=== PATIENT | male | born 1980 | race Caucasian/White ===

== ENCOUNTER 2017-07-26 23:11 | Emergency (ER) | payer MEDICARE, MEDICAID ==
[2017-07-26] MEDS: NS 1,000 ML IV (23:30)
[2017-07-27] MEDS: GI COCKTAIL 50ML BTL(HYOSCYAMINE/MAALOX/LIDOCAINE VISCOUS)(1:3:1) PO (00:38)
[2017-07-27] MEDS: SUCRALFATE 1 GM TAB PO (00:38)
[2017-07-27 00:39] LABS: BASO % 0.2 % (0.0-1.0); EOS # 0.5 10^3/uL (0.0-0.50); EOS % 3.4 % (0.0-3.0); HEMATOCRIT 39.7 % (42.0-52.0); HEMOGLOBIN 13.7 g/dl (13.5-17.5); IMMATURE GRANULOCYTE % 0.4 % (0-3.0); LYMPH % 19.3 % (24.0-44.0); MEAN CORPUSCULAR HEMOGLOBIN 29.7 pg (27.0-33.0); MEAN CORPUSCULAR HGB CONC 34.5 g/dl (32.0-36.5); MEAN CORPUSCULAR VOLUME 86.1 fl (80.0-96.0); MONO # 1.4 10^3/uL (0.0-0.8); MONO % 9.4 % (0.0-5.0); NEUTROPHILS # 10.4 10^3/uL (1.8-7.7); NEUTROPHILS % 67.3 % (36.0-66.0); PLATELET COUNT, AUTOMATED 217 10^3/uL (150-450); RED BLOOD COUNT 4.61 10^6/uL (4.30-6.10); RED CELL DISTRIBUTION WIDTH 13.1 % (11.5-14.5); WHITE BLOOD COUNT 15.4 10^3/uL (4.0-10.0)
[2017-07-27] MEDS: PANTOPRAZOLE 40MG INJ (PROTONIX) (C9113) IV (00:39)
[2017-07-27 01:02] LABS: ALBUMIN 3.4 GM/DL (3.2-5.2); ALBUMIN/GLOBULIN RATIO 1.06 (1.00-1.93); ALKALINE PHOSPHATASE 107 U/L (45-117); ALT/SGPT 41 U/L (12-78); AMYLASE 35 U/L (25-115); ANION GAP 5 MEQ/L (8-16); AST/SGOT 20 U/L (7-37); BILIRUBIN,DIRECT 0.1 MG/DL (0.0-0.2); BILIRUBIN,TOTAL 0.4 MG/DL (0.2-1.0); BLOOD UREA NITROGEN 12 MG/DL (7-18); CALCIUM LEVEL 8.1 MG/DL (8.5-10.1); CARBON DIOXIDE LEVEL 28 MEQ/L (21-32); CHLORIDE LEVEL 110 MEQ/L (98-107); CREATININE FOR GFR 0.92 MG/DL (0.70-1.30); GLOMERULAR FILTRATION RATE > 60.0 (>60); GLUCOSE, FASTING 106 MG/DL (70-100); LIPASE 87 U/L (73-393); POTASSIUM SERUM 4.1 MEQ/L (3.5-5.1); SODIUM LEVEL 143 MEQ/L (136-145); TOTAL PROTEIN 6.6 GM/DL (6.4-8.2)
[2017-07-27] MEDS: OXYCODONE/APAP 5MG/325MG(BULK FOR ED) 1 TABLET PO (02:22)
== END 2017-07-27 02:26 | disposition home or self-care (01) ==
LOC: M ED 07-27 02:26
DX: K21.9 Gastro-esophageal reflux disease without esophagitis (principal); R07.9 Chest pain, unspecified; I10 Essential (primary) hypertension; F32.9 Major depressive disorder, single episode, unspecified; M10.9 Gout, unspecified; F17.200 Nicotine dependence, unspecified, uncomplicated; Z88.8 Allergy status to other drugs, medicaments and biological substances; Z91.018 Allergy to other foods; Z91.030 Bee allergy status; Z79.899 Other long term (current) drug therapy; Z79.82 Long term (current) use of aspirin
CPT/HCPCS: 82150

== ENCOUNTER → 2018-11-04 | Outpatient (REF) ==
[~2018-11-04] MED LIST: ALBUTEROL INH; AMLO10TA5; ASPI81TA83 OR; COLC1TAB13; EPIN0.3I11; FLOM0.4C39; LAMI1TAB7 OR; MELO15TA28; METO1TAB32; OMEP20CA4; PRIL40CA OR; TOPI50TA OR; VENL150C43; VENL75TA2 OR; ZITHTAB OR
--- NOTE | 2018-11-04 17:50 | REP ---
Lumbar spine series: Three views. History: Degenerative disc disease. Findings: Lumbar vertebral body heights are preserved. Alignment is normal. There is no evidence of spondylolysis or spondylolisthesis. There is minimal degenerative narrowing of the L3-4 and L4-5 disc spaces. No spurring is seen. Pedicles and posterior elements are intact. Sacrum and SI joints are unremarkable. Psoas margins are symmetric. Impression: Minimal narrowing of the L4-5 and L3-4 intervertebral discs. Otherwise normal. Electronically Signed by Milad Agarwal MD 11/04/2018 07:28 P
== END ==
LOC: M SMT 09:22
PROVIDERS: ATTEND Internal Medicine
DX: Z02.71 Encounter for disability determination (principal)

== ENCOUNTER 2019-11-17 22:01 | Emergency (ER) | payer MEDICAID, MEDICARE, SELFPAY ==
[~2019-11-17] VITALS: Ht 185.4 cm; Wt 131.8 kg
[~2019-11-17 22:01] MED LIST changes: -AMLO10TA5; +AMLO1TAB25; +OMEP1CAP73; -OMEP20CA4
[2019-11-17] MEDS ORDERED: LOSA100T50 PO (22:09)
[2019-11-17] MEDS ORDERED: ALLO10TA PO (22:09)
[2019-11-18] MEDS ORDERED: KETOROLAC TROMETHAMINE 10 MG TAB PO ONE (00:30)
[2019-11-18 00:36] VITALS: BP 205/112
--- NOTE | 2019-11-18 08:18 | REP ---
Clinical: Trauma. Sprain. Technique: AP, lateral, bilateral oblique views of the left ankle. Findings: Marked soft tissue swelling. No acute fracture dislocation. Ankle mortise intact. Impression: Soft-tissue swelling. No acute fracture. Electronically Signed by Hernán Duncan MD 11/18/2019 08:10 A
== END 2019-11-18 00:54 | disposition home or self-care (01) ==
LOC: M ED 22:01
DX: S93.402A Sprain of unspecified ligament of left ankle, initial encounter (principal); X50.9XXA Other and unspecified overexertion or strenuous movements or postures, initial encounter; Y92.410 Unspecified street and highway as the place of occurrence of the external cause; I10 Essential (primary) hypertension; F33.9 Major depressive disorder, recurrent, unspecified; G47.33 Obstructive sleep apnea (adult) (pediatric); K21.9 Gastro-esophageal reflux disease without esophagitis; Z99.89 Dependence on other enabling machines and devices; Z79.899 Other long term (current) drug therapy; Z91.018 Allergy to other foods; Z91.030 Bee allergy status; Z88.1 Allergy status to other antibiotic agents; Z88.8 Allergy status to other drugs, medicaments and biological substances; F17.210 Nicotine dependence, cigarettes, uncomplicated

== ENCOUNTER 2020-05-19 00:10 | Emergency (ER) | payer SELFPAY ==
[~2020-05-19] VITALS: Ht 182.9 cm; Wt 126.6 kg
[~2020-05-19 00:10] MED LIST changes: +ALLO10TA PO; +COLC0.6T47; -COLC1TAB13; +LOSA100T50 PO
--- OUTSIDE RECORDS SUMMARY | 2020-05-19 00:22 | CCD | Continuity of Care Document ---
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 Name Role Phone PCP Unavailable Allergies, Adverse Reactions, Alerts Allergen Type Severity Reaction Last Updated Verified Status BEE STINGS Allergy Unknown angioedema~hives December 01, 2014 No Active HDOXIZ Allergy Unknown May 18, 2015 No A ctive HDROXIZ Allergy Unknown December 01, 2014 No Act bernardino HDROXYZINE Allergy Unknown hives December 01, 2014 No Ac tive HYDOXIZNE Allergy Unknown May 18, 2015 No A ctive HYDROXIZINE Allergy Unknown HIVES June 21, 2012 No Active ONIONS Allergy Unknown HIVES June 21, 2012 No Active wnagodmhvs Allergy Unknown December 01, 2014 No Ac tive Medications Medication Status Dose Units Route Sig Qty Days Start Date End Date Instructions Omeprazole Active Daily VENLAFAXINE HCL Active Twice Daily ERGOCALCIFEROL (VITAMIN D2) Discontinued Every 7 Day s @ 1800 February 09, 2013 11:39am Gabapentin Discontinued 300 Daily October 12:20am Omeprazole Discontinued 40 Daily October 12:20am VENLAFAXINE HCL Discontinued 150 Daily Oct 12:20am Zolpidem Tartrate Discontinued 10 HS, PRN November 23, 2012 12:20am Problems No problem information available. Procedures Procedure Date Performed Status THORACIC W/O IV CONTRAST April 06, 2020 active L SPINE W/O IV CONTRAST April 06, 2020 active CERV SPINE W/O CONTRAST April 06, 2020 active BRAIN W/O CONTRAST April 06, 2020 active Relevant Diagnostic Tests and/or Laboratory Data Laboratory Results Test Date/Time Result Interpretation Reference Range Result Co mment Performing Site Urine Color April 05, 2020 8:05pm YELLOW [facility] Main Lab, [address] [facility] [address] Urine Appearance April 05, 2020 8:05pm CLEAR [facility] Lab, [address] [facility] [address] Urine Glucose April 05, 2020 8:05pm NEGATIVE [facility] Lab, [address] [facility] [address] Urine Bilirubin April 05, 2020 8:05pm NEGATIVE [facility] Lab, [address] [facility] [address] Urine Ketones April 05, 2020 8:05pm NEGATIVE [facility] Lab, [address] [facility] [address] Specific [facility] April 05, 2020 8:05pm 1.020 1.001-1 .035 [facility] Lab, [address] [facility] [address] Urine Blood April 05, 2020 8:05pm TRACE [facility] Lab, [address] [facility] [address] Urine pH April 05, 2020 8:05pm 7.0 5.0-9.0 [facility] Lab, [address] [facility] [address] Urine Protein April 05, 2020 8:05pm NEGATIVE [facility] Lab, [address] [facility] [address] Urine Urobilinogen April 05, 2020 8:05pm NORMAL(0.2-1) 0 -1 [facility], [address] [facility] [address] Urine Nitrite April 05, 2020 8:05pm NEGATIVE [facility] Lab, [address] [facility] [address] Urine Leukocyte Esterase April 05, 2020 8:05pm NEGATIVE NEGATIVE [facility] Lab, [address] [facility] [address] Urine Microscopic RBC April 05, 2020 8:05pm 0-2 0- 3 [facility] Lab, [address] [facility] [address] Urine Microscopic WBC April 05, 2020 8:05pm NONE SEEN 0- 5 [facility] Lab, [address] [facility] [address] Health Concerns No known health concerns documented Chief Complaint and Reason for Visit Reason for Visit LOWER BACK PAIN FROM FALL Encounters Encounter Location(s) Arrival/Admit Date Discharge/Depart Date Provider(s) Departed Emergency [facility], [facility] April 05, 2020 7:43pm April 05, 2020 10:42pm JEWELL REY Assessments No Assessments Information Available Functional Status No Functional Status information available Goals No Goals Information Available Immunizations Immunization Event Date Not Given Reason Dose Number [employer] Lot Number Vaccine Information Statement (VIS) Detail Mental Status No Mental Status Information Available Medical Equipment No Medical Equipment Information available Insurance Providers Guarantor BETTE CARSON Address [address] [place] [address] Contact Info. Home Phone: Payer Policy Id Coverage Id Subscriber's Name Subscriber Id Effect [id number] Date Expiration Date SELF PAY [id number] BETTE CARSON Social History Assigned Sex Male Vital Signs No vital signs result information available.
--- OUTSIDE RECORDS SUMMARY | 2020-05-19 00:23 | CCD ---
Author Author [facility] Organization [facility] Address Unknown Phone Unavailable Care Team Providers Care Dental Practice Manager Name Role Phone PETROFF, BARRETT PA Unavailable Unavailable PETROFF, BARRETT PA Unavailable Unavailable PETROFF, BARRETT PA Unavailable Unavailable PETROFF, BARRETT PA Unavailable Unavailable PETROFF, BARRETT PA Unavailable Unavailable PETROFF, BARRETT PA Unavailable Unavailable PETROFF, BARRETT PA Unavailable Unavailable PETROFF, BARRETT PA Unavailable Unavailable SYMENOW, G CHRISTOPHER PA Unavailable Unavailable SYMENOW, G CHRISTOPHER PA Unavailable Unavailable SYMENOW, G CHRISTOPHER PA Unavailable Unavailable SYMENOW, G CHRISTOPHER PA Unavailable Unavailable SYMENOW, G CHRISTOPHER PA Unavailable Unavailable SYMENOW, G CHRISTOPHER PA Unavailable Unavailable SYMENOW, G CHRISTOPHER PA Unavailable Unavailable SYMENOW, G CHRISTOPHER PA Unavailable Unavailable SYMENOW, G CHRISTOPHER PA Unavailable Unavailable SYMENOW, G CHRISTOPHER PA Unavailable Unavailable SYMENOW, G CHRISTOPHER PA Unavailable Unavailable SYMENOW, G CHRISTOPHER PA Unavailable Unavailable SYMENOW, G CHRISTOPHER PA Unavailable Unavailable SYMENOW, G CHRISTOPHER PA Unavailable Unavailable SYMENOW, G CHRISTOPHER PA Unavailable Unavailable SYMENOW, G CHRISTOPHER PA Unavailable Unavailable SYMENOW, G CHRISTOPHER PA Unavailable Unavailable Bridges, W Mahsa RPA-C Unavailable Unavailable Bridges, W Mahsa RPA-C Unavailable Unavailable Bridges, W Mahsa RPA-C Unavailable Unavailable Bridges, W Mahsa RPA-C Unavailable Unavailable Bridges, W Mahsa RPA-C Unavailable Unavailable Bridges, W Mahsa RPA-C Unavailable Unavailable Bridges, W Mahsa RPA-C Unavailable Unavailable Bridges, W Mahsa RPA-C Unavailable Unavailable Bridges, W Mahsa RPA-C Unavailable Unavailable Bridges, W Mahsa RPA-C Unavailable Unavailable Bridges, W Mahsa RPA-C Unavailable Unavailable Bridges, W Mahsa RPA-C Unavailable Unavailable Bridges, W Mahsa RPA-C Unavailable Unavailable Bridges, W Mahsa RPA-C Unavailable Unavailable Bridges, W Mahsa RPA-C Unavailable Unavailable Bridges, W Mahsa RPA-C Unavailable Unavailable KRISSY, JEWELL PA Unavailable Unavailable KRISSY, JEWELL PA Unavailable Unavailable KRISSY, JEWELL PA Unavailable Unavailable KRISSY, JWEELL PA Unavailable Unavailable KRISSY, JEWELL PA Unavailable Unavailable KRISSY, JEWELL PA Unavailable Unavailable KRISSY, JEWELL PA Unavailable Unavailable KRISSY, JEWELL PA Unavailable Unavailable KRISSY, JEWELL PA Unavailable Unavailable KRISSY, JEWELL PA Unavailable Unavailable KRISSY, JEWELL PA Unavailable Unavailable KRISSY, JEWELL PA Unavailable Unavailable KRISSY, JEWELL PA Unavailable Unavailable KRISSY, JEWELL PA Unavailable Unavailable KRISSY, JEWELL PA Unavailable Unavailable Lv CRUMP MD Unavailable Unavailable Lv CRUMP MD Unavailable Unavailable Lv CRUMP MD Unavailable Unavailable Cougler, S Kade DIESEL POWER MECHANIC Unavailable Unavailable Cougler, S Kade DIESEL POWER MECHANIC Unavailable Unavailable Cougler, S Kade DIESEL POWER MECHANIC Unavailable Unavailable Cougler, S Kade DIESEL POWER MECHANIC Unavailable Unavailable Cougler, S Kade DIESEL POWER MECHANIC Unavailable Unavailable Cougler, S Kade DIESEL POWER MECHANIC Unavailable Unavailable Cougler, S Kade DIESEL POWER MECHANIC Unavailable Unavailable Cougler, S Kade DIESEL POWER MECHANIC Unavailable Unavailable Cougler, S Kade DIESEL POWER MECHANIC Unavailable Unavailable Cougler, S Kade DIESEL POWER MECHANIC Unavailable Unavailable Cougler, S Kade DIESEL POWER MECHANIC Unavailable Unavailable Cougler, S Kade DIESEL POWER MECHANIC Unavailable Unavailable Cougler, S Kade DIESEL POWER MECHANIC Unavailable Unavailable Cougler, S Kade DIESEL POWER MECHANIC Unavailable Unavailable Cougler, S Kade DIESEL POWER MECHANIC Unavailable Unavailable Cougler, S Kade DIESEL POWER MECHANIC Unavailable Unavailable Cougler, S Kade DIESEL POWER MECHANIC Unavailable Unavailable Cougler, S Kade DIESEL POWER MECHANIC Unavailable Unavailable Cougler, S Kade DIESEL POWER MECHANIC Unavailable Unavailable Cougler, S Kade DIESEL POWER MECHANIC Unavailable Unavailable Cougler, S Kade DIESEL POWER MECHANIC Unavailable Unavailable Cougler, S Kade DIESEL POWER MECHANIC Unavailable Unavailable Cougler, S Kade DIESEL POWER MECHANIC Unavailable Unavailable Cougler, S Kade DIESEL POWER MECHANIC Unavailable Unavailable Cougler, S Kade DIESEL POWER MECHANIC Unavailable Unavailable Cougler, S Kade DIESEL POWER MECHANIC Unavailable Unavailable Cougler, S Kade DIESEL POWER MECHANIC Unavailable Unavailable Cougler, S Kade DIESEL POWER MECHANIC Unavailable Unavailable Cougler, S Kade DIESEL POWER MECHANIC Unavailable Unavailable Cougler, S Kade DIESEL POWER MECHANIC Unavailable Unavailable Cougler, S Kade DIESEL POWER MECHANIC Unavailable Unavailable Cougler, S Kade DIESEL POWER MECHANIC Unavailable Unavailable Cougler, S Kade DIESEL POWER MECHANIC Unavailable Unavailable Cougler, S Kade DIESEL POWER MECHANIC Unavailable Unavailable Cougler, S Kade DIESEL POWER MECHANIC Unavailable Unavailable Cougler, S Kade DIESEL POWER MECHANIC Unavailable Unavailable Cougler, S Kade DIESEL POWER MECHANIC Unavailable Unavailable Cougler, S Kade DIESEL POWER MECHANIC Unavailable Unavailable Cougler, S Kade DIESEL POWER MECHANIC Unavailable Unavailable Huntley, R Luis Fernando PA Unavailable Unavailable Huntley, R Luis Fernando PA Unavailable Huntley, R Luis Fernando PA Unavailable Huntley, R Luis Fernando PA Unavailable Huntley, R Luis Fernando PA Unavailable Huntley, R Luis Fernando PA Unavailable Huntley, R Luis Fernando PA Unavailable Huntley, R Luis Fernando PA Unavailable MARAVEGIAS, Alfredito MEZA MD Unavailable Unavailable MARAVEGIAS, Alfredito MEZA MD Unavailable Unavailable MARAVEGIAS, Alfredito MEZA MD Unavailable Unavailable MARAVEGIAS, Alfredito MEZA MD Unavailable Unavailable MARAVEGIADanilo, Alfredito MEZA MD Unavailable Unavailable MARAVEGIAS, Alfredito MEZA MD Unavailable Unavailable MARAVEGIAS, Alfredito MEZA MD Unavailable Unavailable MARAVEGIADanilo, Alfredito MEZA MD Unavailable Unavailable MARAVEGIADanilo, Alfredito MEZA MD Unavailable Unavailable MARAVEGIADanilo, Alfredito MEZA MD Unavailable Unavailable MARAVEGIAS, Alfredito MEZA MD Unavailable Unavailable MARAVEGIAS, Alfredito MEZA MD Unavailable Unavailable MARAVEGIADanilo, N SAIDA JOLLY Unavailable Unavailable MARAVEGIAS, N SAIDA JOLLY Unavailable Unavailable BROWN, GUY NICHOLAS DIESEL POWER MECHANIC Unavailable Unavailable BROWN, GUY NICHOLAS DIESEL POWER MECHANIC Unavailable Unavailable BROWN, GUY NICHOLAS DIESEL POWER MECHANIC Unavailable Unavailable BROWN, GUY NICHOLAS DIESEL POWER MECHANIC Unavailable Unavailable BROWN, GUY NICHOLAS DIESEL POWER MECHANIC Unavailable Unavailable BROWN, GUY NICHOLAS DIESEL POWER MECHANIC Unavailable Unavailable BROWN, GUY NICHOLAS DIESEL POWER MECHANIC Unavailable Unavailable BROWN, GUY NICHOLAS DIESEL POWER MECHANIC Unavailable Unavailable BROWN, GUY NICHOLAS DIESEL POWER MECHANIC Unavailable Unavailable BROWN, GUY NICHOLAS DIESEL POWER MECHANIC Unavailable Unavailable BROWN, GUY NICHOLAS DIESEL POWER MECHANIC Unavailable Unavailable BROWN, GUY NICHOLAS DIESEL POWER MECHANIC Unavailable Unavailable BROWN, GUY NICHOLAS DIESEL POWER MECHANIC Unavailable Unavailable BROWN, GUY NICHOLAS DIESEL POWER MECHANIC Unavailable Unavailable BROWN, GUY NICHOLAS DIESEL POWER MECHANIC Unavailable Unavailable BROWN, GUY NICHOLAS DIESEL POWER MECHANIC Unavailable Unavailable BROWN, GUY NICHOLAS DIESEL POWER MECHANIC Unavailable Unavailable BROWN, GUY NICHOLAS DIESEL POWER MECHANIC Unavailable Unavailable BROWN, GUY NICHOLAS DIESEL POWER MECHANIC Unavailable Unavailable BROWN, GUY NICHOLAS DIESEL POWER MECHANIC Unavailable Unavailable BROWN, GUY NICHOLAS DIESEL POWER MECHANIC Unavailable Unavailable BROWN, GUY NICHOLAS DIESEL POWER MECHANIC Unavailable Unavailable BROWN, GUY NICHOLAS DIESEL POWER MECHANIC Unavailable Unavailable BROWN, GUY NICHOLAS DIESEL POWER MECHANIC Unavailable Unavailable BROWN, GUY NICHOLAS DIESEL POWER MECHANIC Unavailable Unavailable BROWN, GUY NICHOLAS DIESEL POWER MECHANIC Unavailable Unavailable BROWN, GUY NICHOLAS DIESEL POWER MECHANIC Unavailable Unavailable BROWN, GUY NICHOLAS DIESEL POWER MECHANIC Unavailable Unavailable BROWN, GUY NICHOLAS DIESEL POWER MECHANIC Unavailable Unavailable BROWN, GUY NICHOLAS DIESEL POWER MECHANIC Unavailable Unavailable BROWN, GUY NICHOLAS DIESEL POWER MECHANIC Unavailable Unavailable BROWN, GUY NICHOLAS DIESEL POWER MECHANIC Unavailable Unavailable BROWN, GUY NICHOLAS DIESEL POWER MECHANIC Unavailable Unavailable BROWN, GUY NICHOLAS DIESEL POWER MECHANIC Unavailable Unavailable BROWN, GUY NICHOLAS DIESEL POWER MECHANIC Unavailable Unavailable BROWN, GUY NICHOLAS DIESEL POWER MECHANIC Unavailable Unavailable BROWN, GUY NICHOLAS DIESEL POWER MECHANIC Unavailable Unavailable BROWN, GUY NICHOLAS DIESEL POWER MECHANIC Unavailable Unavailable BROWN, GUY NICHOLAS DIESEL POWER MECHANIC Unavailable Unavailable PASTORA, DANIELLE PA Unavailable Unavailable PASTORA, DANIELLE PA Unavailable Unavailable PASTORA, DANIELLE PA Unavailable Unavailable PASTORA, DANIELLE PA Unavailable Unavailable PASTORA, DANIELLE PA Unavailable Unavailable PASTORA, DANIELLE PA Unavailable Unavailable PASTORA, DANIELLE PA Unavailable Unavailable SYBIL, YULY MARTHA PA Unavailable Unavailable SYBIL, YULY MARTHA PA Unavailable Unavailable SYBIL, YULY MARTHA PA Unavailable Unavailable SYBIL, YULY MARTHA PA Unavailable Unavailable SYBIL, YULY MARTHA PA Unavailable Unavailable SYBIL, YULY MARTHA PA Unavailable Unavailable SYBIL, YULY MRATHA PA Unavailable Unavailable SYBIL, YULY MARTHA PA Unavailable Unavailable SYBIL, YULY MARTHA PA Unavailable Unavailable SYBIL, YULY MARTHA PA Unavailable Unavailable SYBIL, YULY MARTHA PA Unavailable Unavailable SYBIL, YULY MARTHA PA Unavailable Unavailable SYBIL, YULY MARTHA PA Unavailable Unavailable SYBIL, YULY MARTHA PA Unavailable Unavailable SYBIL, YULY MARTHA PA Unavailable Unavailable SYBIL, YULY MARTHA PA Unavailable Unavailable SYBIL, YULY MARTHA PA Unavailable Unavailable SYBIL, YULY MARTHA PA Unavailable Unavailable SYBIL, YULY MARTHA PA Unavailable Unavailable SYBIL, YULY MARTHA PA Unavailable Unavailable SYBIL, YULY MARTHA PA Unavailable Unavailable LOBITO, A DARON PA Unavailable Unavailable LOBITO, A DARON PA Unavailable Unavailable LOBITO, A DARON PA Unavailable Unavailable LOBITO, A DARON PA Unavailable Unavailable LOBITO, A DARON PA Unavailable Unavailable LOBITO, A DARON PA Unavailable Unavailable LOBITO, A DARON PA Unavailable Unavailable LOBITO, A DARON PA Unavailable Unavailable LOBITO, A DARON PA Unavailable Unavailable LOBITO, A DARON PA Unavailable Unavailable LOBITO, A DARON PA Unavailable Unavailable LOBITO, A DARON PA Unavailable Unavailable LOBITO, A DARON PA Unavailable Unavailable Kaykay MILLER MD Unavailable Unavailable Kaykay MILLER MD Unavailable Unavailable Kaykay MILLER MD Unavailable Unavailable Kaykay MILLER MD Unavailable Unavailable Kaykay MILLER MD Unavailable Unavailable Kaykay MILLER MD Unavailable Unavailable Kaykay MILLER MD Unavailable Unavailable Kaykay MILLER MD Unavailable Unavailable Kaykay MILLER MD Unavailable Unavailable Kaykay MILLER MD Unavailable Unavailable Kaykay MILLER MD Unavailable Unavailable Kaykay MILLER MD Unavailable Unavailable Kaykay MILLER MD Unavailable Unavailable Kaykay MILLER MD Unavailable Unavailable Kaykay MILLER MD Unavailable Unavailable Kaykay MILLER MD Unavailable Unavailable Kaykay MILLER MD Unavailable Unavailable Kaykay MILLER MD Unavailable Unavailable Neelima MERRILL Unavailable [phone] Neelima MERRILL Unavailable [phone] Neelima MERRILL Unavailable [phone] Neelima MERRILL Unavailable [phone] Neelima MERRILL Unavailable [phone] Tiffanie MCFARLANE PA Unavailable Unavailable MCFARLANE, W CHIRGA PA Unavailable Unavailable MCFARLANE, W CHIRAG PA Unavailable Unavailable MCFARLANE, W CHIRAG PA Unavailable Unavailable MCFARLANE, W CHIRAG PA Unavailable Unavailable MCFARLANE, W CHIRAG PA Unavailable Unavailable MCFARLANE, W CHIRAG PA Unavailable Unavailable MCFARLANE, W CHIRAG PA Unavailable Unavailable MCFARLANE, W CHIRAG PA Unavailable Unavailable MCFARLANE, W CHIRAG PA Unavailable Unavailable MCFARLANE, W CHIRAG PA Unavailable Unavailable MCFARLANE, W CHIRAG PA Unavailable Unavailable MCFARLANE, W CHIRAG PA Unavailable Unavailable JUSTINE PATEL MD Unavailable Unavailable JUSTINE PATEL MD Unavailable Unavailable JUSTINE PATEL MD Unavailable Unavailable JUSTINE PATEL MD Unavailable Unavailable JUSTINE PATEL MD Unavailable Unavailable Re-disclosure Warning The records that you are about to access may contain information from federally-assisted alcohol or drug abuse programs. If such information is present, then the following federally mandated warning applies: This information has been disclosed to you from records protected by federal confidentiality rules (42 CFR part 2). The federal rules prohibit you from making any further disclosure of this information unless further disclosure is expressly permitted by the written consent of the person to whom it pertains or as otherwise permitted by 42 CFR part 2. A general authorization for the release of medical or other information is NOT sufficient for this purpose. The Federal rules restrict any use of the information to criminally investigate or prosecute any alcohol or drug abuse patient.The records that you are about to access may contain highly sensitive health information, the redisclosure of which is protected by Article 27-F of the [facility] Public Health law. If you continue you may have access to information: Regarding HIV / AIDS; Provided by facilities licensed or operated by the [facility] Office of Mental Health; or Provided by the [facility] Office for People With Developmental Disabilities. If such information is present, then the following [facility] mandated warning applies: This information has been disclosed to you from confidential records which are protected by state law. State law prohibits you from making any further disclosure of this information without the specific written consent of the person to whom it pertains, or as otherwise permitted by law. Any unauthorized further disclosure in violation of state law may result in a fine or half-way sentence or both. A general authorization for the release of medical or other information is NOT sufficient authorization for further disc losure. Allergies and Adverse Reactions Type Description Substance Reaction Status Data Source(s ) Drug allergy Drug allergy bee venom protein (honey bee) 'Throat Swell s' [facility] Drug allergy Drug allergy onion Anaphylactic Shock S [facility] Drug allergy Drug allergy clindamycin Diarrhea [facility] Drug allergy Drug allergy hydroxyzine Hives I [facility] Encounters Encounter Providers Location Date Indications Data Source(s ) Emergency Attender: JEWELL GONZALEZ EMERGENCY ROOM-ER 12/2019 01:11:00 AM EST - 04/06/2020 03:42:00 AM EST [facility] Patient discharged. Emergency Attender: SAIDA RUIZ MD ED-ED 0 12/15/2019 12:03:00 PM EDT - 12/15/2019 01:29:00 PM EDT RIGHT KNEE INJ [facility] RIGHT KNEE INJ Patient discharged. Emergency Attender: Luis Fernando Hansen: Luis Fernando GONZALEZ ED-ED 08/16/2019 11:43:00 PM EDT - 08/17/2019 01:36:00 AM EDT RT FOOT PAIN [facility] RT FOOT PAIN Patient discharged. Emergency Attender: Luis Fernando Hansen: Luis Fernando GONZALEZ ED-ED 06/24/2019 09:09:00 PM EST - 06/25/2019 12:13:00 AM EST HEADACHE RUNNY NOSE SORE THROAT [facility] HEADACHE RUNNY NOSE SORE THROAT Patient discharged. Emergency Attender: DANIELLE GONZALEZ ED-ED 05/15 03:20:00 PM EST - 05/15/2019 04:09:00 PM EST BODY ACHES FEVER [facility] BODY ACHES FEVER Patient discharged. Emergency Attender: Luis Fernando Amor nder: Luis Fernando Hansen: Kade Ortega NP ED-ED 04/27/2019 07:56:00 PM EST - 04/27/2019 09:41:00 PM EST BP HIGH [facility] BP HIGH Patient discharged. Emergency Attender: DARON GONZALEZ ED-ED 04/01 03:06:00 PM EST - 04/01/2019 04:58:00 PM EST PAIN IN BOTH FEET, BLURYR VISION [facility] PAIN IN BOTH FEET, BLURYR VISION Patient discharged. Emergency Attender: MAHSA Conteh: TONY CRUMP MD EMERGENCY ROOM-ER 03/16/2016 01:02:00 AM EST - 03/16/2016 02:38:00 AM [facility] Emergency Attender: BARRETT BROWN PAReferrer: NICHOLAS LYON NP 12/16/2015 10:59:00 AM EDT - 12/16/2015 11:38:00 AM EDT [facility] Emergency Attender: MARTHA DEVINE PAReferrer: NICHOLAS ARSHAD NP 06/22/2015 11:21:00 PM EST - 06/23/2015 12:05:00 AM [facility] Emergency Attender: Mahsa Bridges RPA-CReferrer: BEKAH LYON DIESEL POWER MECHANIC EMERGENCY ROOM-ER 05/18/2015 10:43:00 PM EST - 05/19/2015 12:50:00 AM [facility] Emergency Attender: JULIET SMITH PA EMERGENCY ROOM- ER 03/25/2015 10:37:00 PM EST - 03/25/2015 11:58:00 PM [facility] Emergency Attender: CHIRAG MCFARLANE PA EMERGENCY ROOM-ER 2014 01:11:00 PM EDT - 08/09/2014 03:00:00 PM [facility] Outpatient Attender: ISABELA MILLER MDAt tender: JUSTINE PATEL MDAdmitter: ISABELA MILLER MD 07/14/2013 10:45:19 PM EDT - 07/17/2013 04:22:00 PM EDT Lumbar spinal cord injury without evidence of spinal bone injury [facility] Lumbar spinal cord injury without eviden ce of spinal bone injury Medications Medication Brand Name Start Date Product Form Dose Route Admi nistrative Instructions Pharmacy Instructions Status Indications Reaction Description Data Source(s) Cyclobenzaprine hydrochloride 5 MG Oral Tablet CYCLOBENZAPRI NE HCL 04/06/2020 12:00:00 AM EST tablet 15 TAKE ONE TABLET BY MOUTH THREE TIMES A DAY NEEDED FOR PAIN TAKE ONE TABLET BY MOUTH THREE TIMES A DAY NEEDED F OR PAIN SOLD: 04/06/2020 [facility] 5 mg 04/06/2020 12:00:00 AM EST tablet 10 TAKE ONE TABLET BY MOUTH TWICE A DAY NEEDED MAXIMUM DAILY DOSE = 2 TAKE ONE TABLET BY MOUTH TWICE A DAY NEEDED MAXIMUM DAILY DOSE = 2 SOLD: 04/06/2020 [facility] 600 mg 04/06/2020 12:00:00 AM EST tablet 20 TAKE ONE TABLET BY MOUTH THREE TIMES A DAY NEEDED FOR PAIN TAKE ONE TABLET BY MOUTH THREE TIMES A D AY NEEDED FOR PAIN SOLD: 04/06/2020 [facility] 20 mg 12/24/2019 12:00:00 AM EDT tablet 5 TAKE ONE TABLET BY MOUTH EVERY DAY FOR 5 DAYS TAKE ONE TABLET BY MOUTH EVERY DAY FOR 5 DAYS SOLD: 12/24/2019 [facility] 20 mg 12/15/2019 12:00:00 AM EDT tablet 14 TAKE ONE TABLET BY MOUTH TWICE A DAY TAKE ONE TABLET BY MOUTH TWICE A DAY SOLD: 12/15/2019 [facility] 4 mg 08/17/2019 12:00:00 AM EDT tablets,dose pack 21 TAKE BY MOUTH DIRECTED TAKE BY MOUTH DIRECTED SOLD: 08/17/2019 [facility] 20 mg 06/25/2019 12:00:00 AM EST tablet 8 TAKE TWO TABLETS BY MOUTH ONCE DAILY FOR 4 DAYS TAKE TWO TABLETS BY MOUTH ONCE DAILY FOR 4 DAYS SOLD: 06/25/2019 [facility] 250 mg 06/25/2019 12:00:00 AM EST tablet 4 TAKE ONE TABLET BY MOUTH EVERY DAY FOR 4 DAYS TAKE ONE TABLET BY MOUTH EVERY DAY FOR 4 DAYS SOLD: 06/25/2019 [facility] 75 mg 05/15/2019 12:00:00 AM EST capsule 10 TAKE ONE CAPSULE BY MOUTH TWICE A DAY TAKE ONE CAPSULE BY MOUTH TWICE A DAY SOLD: 05/15/2019 [facility] 4 mg 05/15/2019 12:00:00 AM EST tablet,disintegrating 1 0 DISSOLVE 2 TABLET ON TONGUE EVERY 8 HOURS NEEDED FOR NAUSEA DISSOLVE 2 TABLET ON TONGUE EVERY 8 HOURS NEEDED FOR NAUSEA SOLD: 05/15/2019 [facility] 100 mg 05/06/2019 12:00:00 AM EST tablet 90 TAKE ONE TABLET BY MOUTH EVERY DAY TAKE ONE TABLET BY MOUTH EVERY DAY SOLD: 05/08/2019 [facility] 20 mg 04/04/2019 12:00:00 AM EST capsule 30 TAKE ONE CAPSULE BY MOUTH EVERY DAY NEEDED FOR PAIN AND SWELLING TAKE ONE CAPSULE BY MOUTH EVERY DAY NEEDED FOR PAIN AND SWELLING SOLD: 04/05/2019 [facility] 20 mg 04/01/2019 12:00:00 AM EST tablet 15 TAKE THREE TABLETS BY MOUTH ONCE DAILY FOR 5 DAYS TAKE THREE TABLETS BY MOUTH ONCE DAILY FOR 5 DAYS SOLD : 04/01/2019 [facility] 500 mg 04/01/2019 12:00:00 AM EST tablet 20 TAKE ONE TABLET BY MOUTH TWICE A DAY TAKE ONE TABLET BY MOUTH TWICE A DAY SOLD: 04/01/2019 [facility] 40 mg 12/03/2018 12:00:00 AM EDT capsule,delayed release (DR/EC) 30 TAKE ONE CAPSULE BY MOUTH EVERY DAY TAKE ONE CAPSULE BY MOUTH EVERY DAY SOLD: 04/01/2019 [facility] Losartan Potassium 50 MG Oral Tablet LOSARTAN POTASSIUM 12:00:00 AM EST tablet 30 TAKE ONE TABLET BY MOUTH JACOB RY DAY TAKE ONE TABLET BY MOUTH EVERY DAY SOLD: 04/01/2019 [facility] 0.6 mg 06/11/2018 12:00:00 AM EST tablet 60 TAKE ONE TABLET BY MOUTH TWICE A DAY NEEDED TAKE ONE TABLET BY MOUTH TWICE A DAY NEEDED SOLD: 04/01/2019 [facility] Insurance Providers Payer name Policy type / Coverage type Policy ID Covered democrat ID Covered democrat's relationship to mckeon Policy [place] Plan Information SELF PAY ONLY [id number] SP [id number] SELF PAY [id number] S [id number] MEDICAID [id number] S [id number] [employer] [employer] [id number] S [id number] [place] [id number] S [id number] [place] [employer] [id number] S [id number] [place] [id number] S [id number] SELF PAY UNAVAILABLE S UNAVAILA BLE O UNAVAILABLE UNAVAILA BLE MEDICARE [id number] S [id number] FINANCIAL ASSISTANCE 537 S 537 EMEDNY [id number] SP [id number] MEDICARE [id number] SP [id number] MEDICARE [id number] SP [id number] PREFERRED INSURANCE E [id number] Inf [id number] MEDICARE [id number] S [id number] MEDICAID [id number] [place] B [id number] Self [id number] Medicare Medicare Primary [id number] Self 1 [id number] MEDICAID [id number] SP [id number] MEDICARE A [id number] Self [id number] MEDICAID M [id number] Self [id number] MEDICARE A [id number] Self [id number] MEDICAID -O/P EMERGENCY ROOM [id number] MEDICARE -O/P [id number] 18 [id number] MEDICAID -CLINIC [id number] MEDICARE -CLINIC [id number] 18 1 [id number] MEDICAID -PHYSICIAN [id number] MEDICARE PART A -O/P [id number] 18 [id number] MEDICAID -O/P [id number] MEDICAID -O/P [id number] MEDICARE -O/P [id number] 18 [id number] MEDICARE -CLINIC [id number] MEDICAID M [id number] MEDICAID [id number] S [id number] MEDICARE OUTPATIENT M [id number] S [id number] MEDICAID -O/P W [id number] Problems, Conditions, and Diagnoses Code Display Name Description Problem Type Effective Dates Data Source(s) Y93.89 Activity, other specified ACTIVITY, OTHER SPECIFIED Di agnosis 04/06/2020 01:11:00 AM [facility] Y92.[address] in unspeci fied non-institutional (private) residence as the place of occurrence of the external cause UNSP PLACE IN UNSP NON-INSTITUT (PRIVATE) RESIDENC Diagnosis 04/06/2020 01:11:00 AM [facility] W10.8XXA Fall (on) (from) other stairs and steps, initial encounter FALL (ON) (FROM) OTHER STAIRS AND STEPS, INITIAL E Diagnosis 04/06/2020 01:11:00 AM [facility] F17.210 Nicotine dependence, cigarettes, uncompl icated NICOTINE DEPENDENCE, CIGARETTES, UNCOMPLICATED Diagnosis 04/06/2020 01:11:00 AM [facility] I10 Essential (primary) hypertension ESSENTIAL (PRIMARY) H YPERTENSION Diagnosis 04/06/2020 01:11:00 AM [facility] S29.012A Strain of muscle and tendon of back wall of thorax, initial encounter STRAIN OF MUSCLE AND TENDON OF BACK WALL OF THORAX Diagnosis 12/2019 01:11:00 AM [facility] S39.012A Strain of muscle, fascia and tendon of l ower back, initial encounter STRAIN OF MUSCLE, FASCIA AND TENDON OF LOWER BACK, Diagnosis 12/2019 01:11:00 AM [facility] M51.84 Other intervertebral disc disorders, tho racic region OTHER INTERVERTEBRAL DISC DISORDERS, THORACIC REMIGIO Diagnosis 04/06/2020 01:11:00 AM [facility] M51.36 Other intervertebral disc degeneration, lumbar region OTHER INTERVERTEBRAL DISC DEGENERATION, LUMBAR REG Diagnosis 0 01:11:00 AM [facility] S22.070A Wedge compression fracture o f T9-T10 vertebra, initial encounter for closed fracture WEDGE COMPRESSION FRACTURE OF T9-T10 VERTEBRA, INI Diagnosis 04/06/2020 01:11:00 AM [facility] S22.060A Wedge compression fracture o f T7-T8 vertebra, initial encounter for closed fracture WEDGE COMPRESSION FRACTURE OF T7-T8 VERTEBRA, INIT Diagnosis 04/06/2020 01:11:00 AM [facility] S39.92XA Unspecified injury of lower back, initia l encounter UNSPECIFIED INJURY OF LOWER BACK, INITIAL ENCOUNTER Diagnosis 04/06/2020 01:11:00 AM [facility] R91.1 Solitary pulmonary nodule SOLITARY PULMONARY NODULE Di agnosis 04/27/2019 07:56:00 PM [facility] I10 Essential (primary) hypertension ESSENTIAL (PRIMARY) H YPERTENSION Diagnosis 04/27/2019 07:56:00 PM [facility] Surgeries/Procedures Procedure Description Date Indications Data Source(s) INFECTIOUS AGENT DNA/RNA INFLUENZA 1ST 2 TYPES INFLUENZA DNA AMP PROBE 05/15/2019 12:00:00 AM [facility] Non-covered item or service 05/15/2019 12:00:00 AM [facility] EMERGENCY DEPARTMENT VISIT MODERATE SEVERITY EMERGENCY DEPT VISIT 05/15/2019 12:00:00 AM [facility] [id number] X-RAY EXAM CHEST 2 VIEWS 04/27/2019 12:00:00 AM [facility] ECG ROUTINE ECG W/LEAST 12 LDS TRCG ONLY W/O I&R ELECTROCARD IOGRAM TRACING 04/27/2019 12:00:00 AM [facility] URNLS DIP STICK/TABLET REAGENT AUTO MICROSCOPY URINALYSIS AU TO W/SCOPE 04/27/2019 12:00:00 AM [facility] COLLECTION VENOUS BLOOD VENIPUNCTURE ROUTINE VENIPUNCTURE 12:00:00 AM [facility] BLOOD COUNT COMPLETE AUTO&AUTO DIFRNTL WBC COUNT COMPLETE CB C W/AUTO DIFF WBC 04/27/2019 12:00:00 AM [facility] NATRIURETIC PEPTIDE ASSAY OF NATRIURETIC PEPTIDE 04/27/2019 12:00:0 0 AM [facility] TROPONIN QUANTITATIVE ASSAY OF TROPONIN QUANT 04/27/2019 12:00:00 A M [facility] COMPREHENSIVE METABOLIC PANEL COMPREHEN METABOLIC PANEL 03/31 12:00:00 AM [facility] EMERGENCY DEPT VISIT HIGH SEVERITY&THREAT FUNCJ EMERGENCY DE PT VISIT 04/27/2019 12:00:00 AM [facility] Results ID Date Data Source [id number] 04/06/2020 07:15:00 [facility] WITHOUT CONTRAST DATE OF EXAMINATION: 04/06/2020 1:08 EST L SPINE W/O IV CONTRAST INDICATION: Trauma, pain COMPARISON: None. TECHNIQUE: An unenhanced CT scan of the lumbar spine was performed. Thin sectionaxial images were obtained. Sagittal and coronal reformatted images wereobtained. One or more of the following dose reduction techniques were utilized ineffectively lowering the radiation dose for this examination: Automated ExposureControl, Adjustment of the mA and/or kV according to patient size, or Iterativereconstruction. FINDINGS: There is no evidence of acute fracture or subluxation. Normal vertebral bodyheights and alignment are maintained. The intervertebral disk spaces are within normal limits. No focal osteoblasticor osteolytic lesions are seen. The paravertebral soft tissues appearunremarkable. Incidental note is made of atrophy of the left kidney withresultant hypertrophy of the right IMPRESSION: No evidence of acute fracture or subluxation. Electronically signed in PS360 by: Huseyin Peralta M.D. 04/06/2020 7:09 EST Name Value Range Interpretation Code Description Data Jossy rce(s) Supporting Document(s) ID Date Data Source [id number] 04/06[facility]12[facility] CONTRAST DATE OF EXAMINATION: 04/06/2020 1:08 EST THORACIC W/O IV CONTRAST INDICATION: Trauma, pain COMPARISON: None TECHNIQUE: Axial images were obtained from the cervicothoracic junction areathrough the dorsolumbar junction region. Sagittal and coronal reconstructedimages were obtained. Intravenous contrast was not utilized for thisexamination. One or more of the following dose reduction techniques were utilized ineffectively lowering the radiation dose for this examination: Automated ExposureControl, Adjustment of the mA and/or kV according to patient size, or Iterativereconstruction. FINDINGS: There is no fracture identified. There is anterior wedging at T8, T9,T10 resulting in accentuated thoracic kyphosis. There is no evidence ofsubluxation of the vertebral bodies or their articulating facets. Nosignificant degenerative change is seen in the disc spaces. No evidence ofspinal stenosis. IMPRESSION: No acute injury Electronically signed in PS360 by: Huseyin Peralta M.D. 04/06/2020 7:06 EST Name Value Range Interpretation Code Description Data Jossy rce(s) Supporting Document(s) ID Date Data Source [id number] 04/06/2020 07:10:00 AM EST [facility] SCAN WITHOUT CONTRAST DATE OF EXAMINATION: 04/06/2020 1:09 EST CERV SPINE W/O CONTRAST INDICATION: Trauma, pain COMPARISON: None TECHNIQUE: Axial images were obtained from the skull base through the thoracicinlet. Sagittal and coronal reconstructions were made. Intravenous contrast wasnot utilized for this examination. One or more of the following dose reduction techniques were utilized ineffectively lowering the radiation dose for this examination: Automated ExposureControl, Adjustment of the mA and/or kV according to patient size, or Iterativereconstruction. FINDINGS: There is no fracture identified. No evidence for subluxation ofvertebral bodies or their articulating facets. No significant degenerativechange is seen in the disc spaces. No evidence for spinal stenosis. 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 IMPRESSION: Negative cervical spine CT scan. Electronically signed in PS360 by: Huseyin Peralta M.D. 04/06/2020 7:04 EST Name Value Range Interpretation Code Description Data Jossy rce(s) Supporting Document(s) ID Date Data Source [id number] 04/06/2020 07:09:00 AM EST [facility] DATE OF EXAMINATION: 04/06/2020 1:09 EST BRAIN W/O CONTRAST INDICATION: Trauma, pain This CT exam was performed using the following dose reduction techniques:Automated exposure control, adjustment of mA and/or kV according to thepatient's size, and use of iterative reconstruction technique. COMPARISON: None. The basal cisterns, cortical sulci and ventricles are normal. The duran- whitematter differentiation is normal. There is no mass effect or shift. Nointracranial bleeds. No intra or extra-axial collections. The visualizedparanasal sinuses are well aerated. IMPRESSION: No acute intracranial abnormality Electronically signed in PS360 by: Huseyin Peralta M.D. 04/06/2020 7:03 EST Name Value Range Interpretation Code Description Data [facility](s) Supporting Document(s) ID Date Data Source [id number] 04/06/2020 03:49:00 AM EST [facility] Patient: BETTE CARSON Observation Rep or[facility].VisitID: [id number] [place] [address] [phone], MRegistration Date/Time: 04/06/2020 00:43 Weight:136 kg (S). Height/Length:73 inches (S). BMI:39.6 PAST HISTORYProblems:Depression [Active].Gout [Active].GI Disease [Active]. 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 (Bladder, quit tx per pt). Additional Surgeries:Cystoscopy x 3.Oral surgery - all teeth removed. Medications:None. Allergies:Bee sting.BEE STINGS.Clindamycin.Hydroxyzine. Moderate(hives)Onion. FAMILY HISTORYNo significant family medical history. (Electronically signed by Kala Burrows 04/06/2020 03:37) Name Value Range Interpretation Code Description Data Jossy rce(s) Supporting Document(s) ID Date Data Source [id number] 04/06/2020 01:24:00 AM EST [facility] TSYSORDER [id number] Name Value Range Interpretation Code Description Data Jossy rce(s) Supporting Document(s) URINE RBC 0-2 /hpf 0-3 [facility] URINE WBC NONE SEEN /hpf 0-5 [facility] ID Date Data Source [id number] 04/06/2020 01:18:00 AM EST [facility] TSYSORDER [id number] Name Value Range Interpretation Code Description Data Jossy rce(s) Supporting Document(s) URINE COLOR. YELLOW [facility] URINE APPEARANCE CLEAR [facility] URINE GLUCOSE (UA) NEGATIVE mg/dL NEGATIVE [facility] URINE BILIRUBIN NEGATIVE NEGATIVE [facility] URINE KETONE NEGATIVE mg/dL NEGATIVE [facility] SPECIFIC GRAVITY,URINE 1.020 1.001-1.035 [facility] URINE BLOOD TRACE NEGATIVE H [facility] PH,URINE 7.0 5.0-9.0 [facility] URINE PROTEIN NEGATIVE mg/dL NEGATIVE [facility] UR[facility] UROBILINOGEN NORMAL(0.2-1) mg/dL 0-1 R [facility] URINE NITRATE NEGATIVE NEGATIVE [facility] URINE LEUKOCYTE ESTERASE NEGATIVE NEGATIVE [facility] ID Date Data Source [id number] 12/15/2019 02:59:00 PM EDT [facility] Imaging Services Department Imaging Report [address] [place] [address] %(RAD)RES..mtdd.print.filter("line") Name: BETTE CARSON : 1980 Age/Sex: 39M Ordering Provider: Saida Ruiz MD Med Rec #: [id number] Reg Status: [facility] ER Room #: Date of Service: 12/15/19 Report Number: [id number] cc:Kade Ortega NP Send Report To: [id number] XRP/XR Knee Rt 3 View Reason for exam: r knee pain FINDINGS: No fracture or dislocation is identified. There is mild spurring at the patella. Minimal spurring at the lateral compartment of the knee. No suspicious osseous lesion is seen. No joint effusion is identified. IMPRESSION: No fracture/dislocation. Minimal DJD. Time portable performed: Fluoroscopy time in seconds: Number of Exposures: Contrast Agent in ml: Method of Administration: REPORT SIGNATURE ON FILE Reported By: Leandro Hightower MD <Electronically signed by Leandro Hightower MD> 12/16/19 1040 Dictation Date/Time: 12/15/19 1405 Transcribed Date/Time: 12/15/19 1459 Infection Preventionist: YOLA Name Value Range Interpretation Code Description Data Jossy rce(s) Supporting Document(s) ID Date Data Source [id number] 08/17/2019 01:21:00 AM EDT [facility] Name Value Range Interpretation Code Description Data Jossy rce(s) Supporting Document(s) Uric Acid 3.5-7.2 Above high normal [facility] ospital ID Date Data Source [id number] 06/24/2019 10:56:00 PM EST [facility] Name Value Range Interpretation Code Description Data Jossy rce(s) Supporting Document(s) White Blood Count 3.5-10.5 Normal (applies to non-numeri c results) [facility] Red Blood Count 4.30-5.70 Normal (applies to non-numeric results) [facility] Hemoglobin 13.5-17.5 Normal (applies to non-numeric resul ts) [facility] Hematocrit 38.8-50.0 Normal (applies to non-numeric resul ts) [facility] Mean Corpuscular Volume 81.2-95.1 Normal (applies to non- numeric results) [facility] Mean Corpuscular Hgb 25.6-32.2 Normal (applies to non-num martha results) [facility] Mean Corpuscular Hgb Conc 32.0-36.0 Normal (applies to no n-numeric results) [facility] Red Cell Distribution Width 11.8-15.6 Normal (appli es to non-numeric results) [facility] Platelet Count 221 x10 3/uL 150-450 Normal (applies to non-numeric results) [facility] Mean Platelet Volume 9.4-12.4 Normal (applies to non-num martha results) [facility] Neutrophils% (Auto) 31.0-71.0 Normal (applies to non-nume barbara results) [facility] Lymphocytes% (Auto) 20.0-55.0 Normal (applies to non-nume barbara results) [facility] Monocytes% (Auto) 4.0-12.0 Normal (applies to non-numeri c results) [facility] Eosinophils% (Auto) 1.0-8.0 Normal (applies to non-nume barbara results) [facility] Basophils% (Auto) 0.0-2.0 Normal (applies to non-numeri c results) [facility] Immature Granulocytes% (Auto) 0.0-2.0 Normal (trina lies to non-numeric results) [facility] Neutrophils# (Auto) 1.50-6.20 Normal (applies to non-nume barbara results) [facility] Lymphocytes# (Auto) 1.20-4.00 Normal (applies to non-nume barbara results) [facility] Monocytes# (Auto) 0.00-0.90 Normal (applies to non-numeri c results) [facility] Eosinophils# (Auto) 0.00-0.50 Normal (applies to non-nume barbara results) [facility] Basophils# (Auto) 0.00-0.20 Normal (applies to non-numeri c results) [facility] Immature Granulocytes# (Auto) 0.00-7.00 No rmal (applies to non-numeric results) [facility] ID Date Data Source [id number] 06/26/2019 01:42:00 PM [facility] Imaging Services Department Imaging Report [address] [place] [id number] %(RAD)RES..mtdd.print.filter("line") Name: BETTE CARSON : 1980 Age/Sex: 39M Ordering Provider: LISA Ochao Med Rec #: [id number] Reg Status: [facility] Room #: Date of Service: 06/24/19 Report Number: [id number] cc:Kade Ortega NP Send Report To: [id number] XRP/XR Chest 2 View [Pa & Lat] Reason for exam: cough Comparison: 04-27-2019. A CT scan from 05-17-2018. FINDINGS: Lung mays are clear. No focal infiltrate or consolidation is identified. There is mild peribronchial cuffing. This may indicate an underlying viral etiology. The remainder of the lung mays are clear. The cardiac silhouette appears unremarkable. Osseous structures demonstrate a sclerotic lesion in the left 2nd rib measuring approximately 9 mm in size. This is visualized on the previous CT scan from 05-17-2018. This likely represents a bone island. IMPRESSION: Peribronchial cuffing may indicate a viral etiology. No focal consolidation is identified. Sclerotic density in the left 2nd rib, likely represents a bone island is stablesince the prior CT. REPORT DICTATED BY DARON ROBIN, REVIEWED AND SIGNED BY DR. BETANCOURT Time portable performed: Fluoroscopy time in seconds: Number of Exposures: Contrast Agent in ml: Method of Administration: REPORT SIGNATURE ON FILE Reported By: Daron Betancourt MD <Electronically signed by Jade Betancourt MD> 06/29/19 0858 Dictation Date/Time: 06/26/19 0939 Transcribed Date/Time: 06/26/19 1342 Infection Preventionist: JEANE Name Value Range Interpretation Code Description Data Jossy rce(s) Supporting Document(s) ID Date Data Source [id number] 06/24/2019 09:48:00 PM EST [facility] Method performed by Isothermal Nucle ic Acid Amplification. Reference value: Influenza A and B viral RNA not detected. This result does not rule out co-infections with other pathogens or identify any specific influenza A or B virus subtype/lineage. Negative results do not preclude infection with influenza virus and should not be the sole basis of a patient treatment decision.Not DetectedNot Detected Name Value Range Interpretation Code Description Data [facility] Supporting Document(s) ID Date Data Source [id number] 06/24/2019 09:46:00 PM EST [facility] spital Method performed by isothermal nucleic acid amplification. Reference value: Negative for Strep A nucleic acid. Confirmatory culture is NOT required for negative results unless clinical symptoms persist, in the event of an acute rheumatic fever outbreak, or if ordered by provider.Negative Name Value Range Interpretation Code Description Data [facility](s) Supporting Document(s) ID Date Data Source [id number] 05/15/2019 03:53:00 PM EST [facility] spital Method performed by Isothermal Nucle ic Acid Amplification. Reference value: Influenza A and B viral RNA not detected. This result does not rule out co-infections with other pathogens or identify any specific influenza A or B virus subtype/lineage. Negative results do not preclude infection with influenza virus and should not be the sole basis of a patient treatment decision. Name Value Range Interpretation Code Description Data [facility](s) Supporting Document(s) ID Date Data Source [id number] 04/27/2019 09:15:00 PM [facility] Collected By: Nurse Initials: pc Time Collected: 2037 Collected By: Nurse Initials: pc Time Collected: 2037 Name Value Range Interpretation Code Description Data [facility](s) Supporting Document(s) Color,Urine Colorl-Dk Y Normal (applies to non-numeric res ults) [facility] Clarity,Urine Clear Normal (applies to non-numeric re sults) [facility] Specific [place],Urine 1.015-1.025 Normal (applies to non- numeric results) [facility] pH,Urine 5.0-7.0 Normal (applies to non-numeric resul ts) [facility] Protein,Urine Negative [facility] Glucose,Urine Negative Normal (applies to non-numeric re sults) [facility] Ketones,Urine Negative Normal (applies to non-numeric re sults) [facility] Blood,Urine Negative Normal (applies to non-numeric resu lts) [facility] Bilirubin,Urine Negative Normal (applies to non-numeric results) [facility] Urobilinogen,Urine Normal Normal (applies to non-numer ic results) [facility] Leukocyte Esterase,Urine Negative Normal (applies to non -numeric results) [facility] Nitrite,Urine Negative Normal (applies to non-numeric re sults) [facility] ID Date Data Source [id number] 04/27/2019 09:15:00 PM [facility] Collected By: Nurse Initials: pc Time Collected: 2037 Collected By: Nurse Initials: pc Time Collected: 2037 Name Value Range Interpretation Code Description Data Jossy rce(s) Supporting Document(s) WBC,Urine None Seen [facility] Bacteria,Urine None Seen [facility] ital ID Date Data Source [id number] 04/28/2019 08:02:00 AM [facility] Imaging Services Department Imaging Report [address] [place] [address] %(RAD)RES..mtdd.print.filter("line") Name: BETTE CARSON : 1980 Age/Sex: 39M Ordering Provider: LISA Ochoa Med Rec #: [id number] Reg Status: [facility] ER Room #: Date of Service: 04/27/19 Report Number: [id number] cc:Kade Ortega NP Send Report To: [id number] XRP/XR Chest 2 View [Pa & Lat] Reason for exam: Chest pain complaint Comparison: 05-04-18. FINDINGS: The cardiac and mediastinal silhouettes appear normal and the lungs are clear. The bones and soft tissues are normal. The upper abdo men is unremarkable. There is a stable sclerotic area noted at the left second rib laterally that appears to be from a bone island. This was also seen on chest CT scan from 05-17-18. Mild spurring is present at the thoracic spine. IMPRESSION: No acute disease identifiable. Time portable performed: Fluoroscopy time in seconds: Number of Exposures: Contrast Agent in ml: Method of Administration: REPORT SIGNATURE ON FILE Reported By: Leandro Hightower MD <Electronically signed by Leandro Hightower MD> 04/28/19 1205 Dictation Date/Time: 04/28/19 0640 Transcribed Date/Time: 04/28/19 0802 Infection Preventionist: JEANE Name Value Range Interpretation Code Description Data Jossy rce(s) Supporting Document(s) ID Date Data Source [id number] 04/27/2019 09:17:00 PM [facility] Name Value Range Interpretation Code Description Data [facility] rce(s) Supporting Document(s) B-Type Natriuretic Peptide BNP <125 Normal (applies to non-numeric results) [facility] Results of this test should always be us ed in conjunction with the patients medical history, clinical presentation, and other findings. ID Date Data Source [id number] 04/27/2019 09:10:00 PM [facility] Name Value Range Interpretation Code Description Data [facility] rce(s) Supporting Document(s) Sodium 140 mmol/L 136-145 Normal (applies to non-numeric resul ts) [facility] Potassium 3.5-5.1 Normal (applies to non-numeric resul ts) [facility] Chloride 105 mmol/L 98-107 Normal (applies to non-numeric resul ts) [facility] Carbon Dioxide CO2 21-32 Normal (applies to non-numer ic results) [facility] Anion Gap 5.0-16.0 Normal (applies to non-numeric resul ts) [facility] BUN 13 mg/dL 7-18 Normal (applies to non-numeric results) [facility] Creatinine,Serum 0.8-1.5 Normal (applies to non-numeric results) [facility] GFR >60 Normal (applies to non-numeric results) [facility] Glucose Level 157 mg/dL 60-[address] [facility] Reference range is only applicable when patient is fasting Note the following drug interference: Sulfasalazine Sulfapyridine Can see falsely depressed Can see falsely elevated result with up to 17% results with up to 11% decrease in measurement increase in measurement Recommend patients be collected for this test prior to administration of either drug. Calcium 8.5-10.1 Normal (applies to non-numeric resul ts) [facility] Bilirubin,Total 0.1-1.9 Normal (applies to non-numeric results) [facility] SGOT(AST) 28 U/L 15-37 Normal (applies to non-numeric resul ts) [facility] Note the following drug interference: Sulfasalazine Sulfapyridine Can see falsely depressed Can see falsely elevated result with up to 10% results with up to 10% decrease in measurement increase in measurement Recommend patients be collected for this test prior to administration of either drug. SGPT(ALT) 66 U/L 12-78 Normal (applies to non-numeric resul ts) [facility] Note the following drug interference: Sulfasalazine Sulfapyridine Can see falsely depressed Can see falsely elevated result with up to 29% results with up to 10% decrease in measurement increase in measurement Recommend patients be collected for this test prior to administration of either drug. Alkaline Phosphatase 103 U/L 38-126 Normal (applies to non-num martha results) [facility] can increase Alkaline Phosp le vels up to 2 times the normal adult value. Normal values for children and adolescents are 2 to 3 times the normal adult value. Total Protein 6.0-8.2 Normal (applies to non-numeric re sults) [facility] Albumin Level 3.4-5.0 Normal (applies to non-numeric re sults) [facility] ID Date Data Source [id number] 04/27/2019 09:10:00 PM EST [facility] Name Value Range Interpretation Code Description Data Jossy rce(s) Supporting Document(s) Troponin I 0.000-0.056 Normal (applies to non-numeric resu lts) [facility] ID Date Data Source [id number] 04/27/2019 08:56:00 PM EST [facility] Name Value Range Interpretation Code Description Data Jossy rce(s) Supporting Document(s) White Blood Count 3.5-10.5 Normal (applies to non-numeri c results) [facility] Red Blood Count 4.30-5.70 Normal (applies to non-numeric results) [facility] Hemoglobin 13.5-17.5 Normal (applies to non-numeric resul ts) [facility] Hematocrit 38.8-50.0 Normal (applies to non-numeric resul ts) [facility] Mean Corpuscular Volume 81.2-95.1 Normal (applies to non- numeric results) [facility] Mean Corpuscular Hgb 25.6-32.2 Normal (applies to non-num martha results) [facility] Mean Corpuscular Hgb Conc 32.0-36.0 Normal (applies to no n-numeric results) [facility] Red Cell Distribution Width 11.8-15.6 Normal (appli es to non-numeric results) [facility] Platelet Count 251 x10 3/uL 150-450 Normal (applies to non-numeric results) [facility] Mean Platelet Volume 9.4-12.4 Normal (applies to non-num martha results) [facility] Neutrophils% (Auto) 31.0-71.0 Normal (applies to non-nume barbara results) [facility] Lymphocytes% (Auto) 20.0-55.0 Normal (applies to non-nume barbara results) [facility] Monocytes% (Auto) 4.0-12.0 Normal (applies to non-numeri c results) [facility] Eosinophils% (Auto) 1.0-8.0 Normal (applies to non-nume barbara results) [facility] Basophils% (Auto) 0.0-2.0 Normal (applies to non-numeri c results) [facility] Immature Granulocytes% (Auto) 0.0-2.0 Normal (trina lies to non-numeric results) [facility] Neutrophils# (Auto) 1.50-6.20 Normal (applies to non-nume barbara results) [facility] Lymphocytes# (Auto) 1.20-4.00 Normal (applies to non-nume barbara results) [facility] Monocytes# (Auto) 0.00-0.90 Normal (applies to non-numeri c results) [facility] Eosinophils# (Auto) 0.00-0.50 Normal (applies to non-nume barbara results) [facility] Basophils# (Auto) 0.00-0.20 Normal (applies to non-numeri c results) [facility] Immature Granulocytes# (Auto) 0.00-7.00 No rmal (applies to non-numeric results) [facility] ID Date Data Source [id number] 04/01/2019 04:14:00 PM EST [facility] Name Value Range Interpretation Code Description Data Jossy rce(s) Supporting Document(s) Sodium 140 mmol/L 136-145 Normal (applies to non-numeric resul ts) [facility] Potassium 3.5-5.1 Normal (applies to non-numeric resul ts) [facility] Chloride 104 mmol/L 98-107 Normal (applies to non-numeric resul ts) [facility] Carbon Dioxide CO2 21-32 Normal (applies to non-numer ic results) [facility] Anion Gap 5.0-16.0 Normal (applies to non-numeric resul ts) [facility] BUN 15 mg/dL 7-18 Normal (applies to non-numeric results) [facility] Creatinine,Serum 0.8-1.5 Normal (applies to non-numeric results) [facility] GFR >60 Normal (applies to non-numeric results) [facility] Glucose Level 111 mg/dL 60-[address] [facility] Reference range is only applicable when patient is fasting Note the following drug interference: Sulfasalazine Sulfapyridine Can see falsely depressed Can see falsely elevated result with up to 17% results with up to 11% decrease in measurement increase in measurement Recommend patients be collected for this test prior to administration of either drug. Calcium 8.5-10.1 Normal (applies to non-numeric resul ts) [facility] Bilirubin,Total 0.1-1.9 Normal (applies to non-numeric results) [facility] SGOT(AST) 19 U/L 15-37 Normal (applies to non-numeric resul ts) [facility] Note the following drug interference: Sulfasalazine Sulfapyridine Can see falsely depressed Can see falsely elevated result with up to 10% results with up to 10% decrease in measurement increase in measurement Recommend patients be collected for this test prior to administration of either drug. SGPT(ALT) 48 U/L 12-78 Normal (applies to non-numeric resul ts) [facility] Note the following drug interference: Sulfasalazine Sulfapyridine Can see falsely depressed Can see falsely elevated result with up to 29% results with up to 10% decrease in measurement increase in measurement Recommend patients be collected for this test prior to administration of either drug. Alkaline Phosphatase 113 U/L 38-126 Normal (applies to non-num martha results) [facility] can increase Alkaline Phosp le vels up to 2 times the normal adult value. Normal values for children and adolescents are 2 to 3 times the normal adult value. Total Protein 6.0-8.2 Normal (applies to non-numeric re sults) [facility] Albumin Level 3.4-5.0 Normal (applies to non-numeric re sults) [facility] ID Date Data Source [id number] 04/01/2019 04:10:00 PM [facility] Name Value Range Interpretation Code Description Data Jossy rce(s) Supporting Document(s) Hemoglobin A1c 4.4-6.2 Normal (applies to non-numeric r esults) [facility] Estimated Avg Glucose 123 mg/dL 126-240 Below low normal G [facility] ID Date Data Source [id number] 04/01/2019 04:05:00 PM [facility] Name Value Range Interpretation Code Description Data Jossy rce(s) Supporting Document(s) Erythrocyte Sedimentation rate 12 mm/hr 0-15 N ormal (applies to non-numeric results) [facility] ID Date Data Source [id number] 04/01/2019 04:05:00 PM EST [facility] Name Value Range Interpretation Code Description Data Jossy rce(s) Supporting Document(s) White Blood Count 3.5-10.5 Above high normal [facility] Red Blood Count 4.30-5.70 Normal (applies to non-numeric results) [facility] Hemoglobin 13.5-17.5 Normal (applies to non-numeric resul ts) [facility] Hematocrit 38.8-50.0 Normal (applies to non-numeric resul ts) [facility] Mean Corpuscular Volume 81.2-95.1 Normal (applies to non- numeric results) [facility] Mean Corpuscular Hgb 25.6-32.2 Normal (applies to non-num martha results) [facility] Mean Corpuscular Hgb Conc 32.0-36.0 Normal (applies to no n-numeric results) [facility] Red Cell Distribution Width 11.8-15.6 Normal (appli es to non-numeric results) [facility] Platelet Count 271 x10 3/uL 150-450 Normal (applies to non-numeric results) [facility] Mean Platelet Volume 9.4-12.4 Normal (applies to non-num martha results) [facility] Neutrophils% (Auto) 31.0-71.0 Normal (applies to non-nume barbara results) [facility] Lymphocytes% (Auto) 20.0-55.0 Normal (applies to non-nume barbara results) [facility] Monocytes% (Auto) 4.0-12.0 Normal (applies to non-numeri c results) [facility] Eosinophils% (Auto) 1.0-8.0 Normal (applies to non-nume barbara results) [facility] Basophils% (Auto) 0.0-2.0 Normal (applies to non-numeri c results) [facility] Immature Granulocytes% (Auto) 0.0-2.0 Normal (trina lies to non-numeric results) [facility] Neutrophils# (Auto) 1.50-6.20 Above high normal [facility] Lymphocytes# (Auto) 1.20-4.00 Normal (applies to non-nume barbara results) [facility] Monocytes# (Auto) 0.00-0.90 Above high normal [facility] Eosinophils# (Auto) 0.00-0.50 Normal (applies to non-nume barbara results) [facility] Basophils# (Auto) 0.00-0.20 Normal (applies to non-numeri c results) [facility] Immature Granulocytes# (Auto) 0.00-7.00 No rmal (applies to non-numeric results) [facility] ID Date Data Source [id number] 04/02/2019 07:45:00 AM [facility] Imaging Services Department Imaging Report [address], [place] [address] %(RAD)RES..mtdd.print.filter("line") Name: BETTE CARSON : 1980 Age/Sex: 39M Ordering Provider: LISA Hogan Med Rec #: [id number] Reg Status: [facility] Room #: Date of Service: 04/01/19 Report Number: [id number] cc:Kade Ortega NP Send Report To: [id number] CT/CT Head No Contrast Reason for exam: h/a FINDINGS: The basal cisterns and ventricles are within normal limits. No space occupying lesions or any intracranial bleeds noted. No intracerebral edema or any acute abnormalities identified. IMPRESSION: No acute abnormalities noted. While performing the above CT exam, the following dose reduction techniques wereused: *Automated exposure control *Adjustment of the mA and/or kV according to patient size *Use of iterative reconstruction technique CT Dose in mGy: Contrast Agent: Amount in ml: Method of Administration: REPORT SIGNATURE ON FILE Reported By: Daron Betancourt MD <Electronically signed by Jade Betancourt MD> 04/02/19 0825 Dictation Date/Time: 04/01/191649 Transcribed Date/Time: 04/02/19744 Infection Preventionist: JEANE Name Value Range Interpretation Code Description Data Jossy rce(s) Supporting Document(s) Procedure Vital Signs ID Date Data Source [id number] 12/16/2019 10:41:00 AM EDT [facility]ital Name Value Range Interpretation Code Description Data Source(s) Weight Measurement Method 8 8 [facility] Weight (Calculated Kilograms) 123.47 123.47 [facility] Weight 4640 4640 [facility] pital Temperature Source 3 3 [facility] Temperature 97.3 97.3 [facility]ital Respiratory Effort 1 1 [facility] Respiratory Rate [address] [facility] Pulse Assessment Method 4 4 G [facility] Height (Calculated Centimeters) 185.42 185. 42 [facility] Height 72 72 [facility] Blood Pressure 158/98 158/98 [facility] Body Mass Index (BMI) 35.[address] [facility] Weight Measurement Method 8 8 [facility] Weight (Calculated Kilograms) 123.47 123.47 [facility] Weight 4640 4640 [facility] pital Temperature Source 3 3 [facility] Temperature 97.4 97.4 [facility]ital Respiratory Effort 1 1 [facility] Respiratory Rate [address] [facility] Pulse Assessment Method 4 4 G [facility] Pulse Rate 105 105 [facility] pital Height (Calculated Centimeters) 185.42 185. 42 [facility] Height 72 72 [facility] Blood Pressure 168/102 168/102 [facility] Body Mass Index (BMI) 35.[address] [facility] Body Mass Index (BMI) 35.[address] [facility] Weight (Calculated Kilograms) 123.47 123.47 [facility] Height (Calculated Centimeters) 185.42 185. 42 [facility] Weight (Calculated Kilograms) 123.47 123.47 [facility] Height (Calculated Centimeters) 185.42 185. 42 [facility] Body Mass Index (BMI) 35.[address] [facility] Weight (Calculated Kilograms) 123.47 123.47 [facility] Height (Calculated Centimeters) 185.42 185. 42 [facility] Body Mass Index (BMI) 35.[address] ID Date Data Source [id number] 08/17/2019 01:37:00 AM EDT [facility] Name Value Range Interpretation Code Description Data Source(s) Weight Measurement Method 8 8 [facility] Weight (Calculated Kilograms) 123.47 123.47 [facility] Weight 4432 4432 [facility] pital Temperature Source 7 7 [facility] Temperature 98 98 [facility] Respiratory Effort 1 1 [facility] Respiratory Rate [address] [facility] Pulse Assessment Method 4 4 G [facility] Pulse Rate 98 98 [facility] Height (Calculated Centimeters) 185.42 185. 42 [facility] Height 73 73 [facility] Blood Pressure 168/100 168/100 [facility] Body Mass Index (BMI) 35.[address] Weight Measurement Method 8 8 [facility] Weight (Calculated Kilograms) 123.47 123.47 [facility] Weight 4432 4432 [facility] pital Temperature Source 7 7 [facility] Temperature 98.7 98.7 [facility] Respiratory Effort 1 1 [facility] Respiratory Rate [address] [facility] Pulse Assessment Method 4 4 G [facility] Pulse Rate 109 109 [facility] pital Height (Calculated Centimeters) 185.42 185. 42 [facility] Height 73 73 [facility] Blood Pressure 164/108 164/108 [facility] Body Mass Index (BMI) 35.[address] [facility] Weight Measurement Method 8 8 [facility] Weight (Calculated Kilograms) 123.47 123.47 [facility] Weight 4432 4432 [facility] pital Temperature Source 7 7 [facility] Temperature 98.7 98.7 [facility] Respiratory Effort 1 1 [facility] Respiratory Rate [address] [facility] Pulse Assessment Method 4 4 G [facility] Pulse Rate 109 109 [facility] pital Height (Calculated Centimeters) 185.42 185. 42 [facility] Height 73 73 [facility] pital Blood Pressure 164/108 164/108 [facility] Body Mass Index (BMI) 35.[address] [facility] Weight (Calculated Kilograms) 123.47 123.47 [facility] Height (Calculated Centimeters) 185.42 185. 42 [facility] Body Mass Index (BMI) 35.[address] [facility] ID Date Data Source [id number] 06/29/2019 09:00:00 AM EST [facility] Name Value Range Interpretation Code Description Data Source(s) Weight Measurement Method 8 8 [facility] Weight (Calculated Kilograms) 123.47 123.47 [facility] Weight 4640 4640 [facility] pital Temperature Source 7 7 [facility] Temperature 97.1 97.1 [facility] Respiratory Effort 1 1 [facility] Respiratory Rate [address] [facility] Pulse Assessment Method 4 4 G [facility] Pulse Rate 110 110 [facility] pital Height (Calculated Centimeters) 185.42 185. 42 [facility] Height 72 72 [facility] pital Blood Pressure 138/95 138/95 [facility] Body Mass Index (BMI) 35.[address] [facility] Weight Measurement Method 8 8 [facility] Weight (Calculated Kilograms) 123.47 123.47 [facility] Weight 4640 4640 [facility] pital Temperature Source 7 7 [facility] Temperature 97.1 97.1 [facility] Respiratory Effort 1 1 [facility] Respiratory Rate [address] [facility] Pulse Assessment Method 4 4 G [facility] Pulse Rate 110 110 [facility] pital Height (Calculated Centimeters) 185.42 185. 42 [facility] Height 72 72 [facility] pital Blood Pressure 138/95 138/95 [facility] Body Mass Index (BMI) 35.[address] Weight (Calculated Kilograms) 123.47 123.47 [facility] Height (Calculated Centimeters) 185.42 185. 42 [facility] Body Mass Index (BMI) 35.[address] Weight (Calculated Kilograms) 123.47 123.47 [facility] Height (Calculated Centimeters) 185.42 185. 42 [facility] Body Mass Index (BMI) 35.[address] ID Date Data Source [id number] 05/19/2019 02:23:00 AM EST [facility] Name Value Range Interpretation Code Description Data Source(s) Weight Measurement Method 8 8 [facility] Weight (Calculated Kilograms) 123.47 123.47 [facility] Weight 4480 4480 [facility] pital Temperature Source 7 7 [facility] Temperature 98.1 98.1 [facility] Respiratory Effort 1 1 [facility] Respiratory Rate [address] [facility] Pulse Assessment Method 4 4 G [facility] Pulse Rate 125 125 [facility] pital Height (Calculated Centimeters) 185.42 185. 42 [facility] Height 73 73 [facility] Pressure 127/91 127/91 [facility] Body Mass Index (BMI) 35.[address] Weight Measurement Method 8 8 [facility] Weight (Calculated Kilograms) 123.47 123.47 [facility] Weight 4480 4480 [facility] pital Temperature Source 7 7 [facility] Temperature 98.1 98.1 [facility] Respiratory Effort 1 1 [facility] Respiratory Rate [address] [facility] Pulse Assessment Method 4 4 G [facility] Pulse Rate 125 125 [facility] pital Height (Calculated Centimeters) 185.42 185. 42 [facility] Height 73 73 [facility] Blood Pressure 127/91 127/91 [facility] Body Mass Index (BMI) 35.[address] [facility] Weight Measurement Method 8 8 [facility] Weight (Calculated Kilograms) 123.47 123.47 [facility] Weight 4480 4480 [facility] pital Temperature Source 7 7 [facility] Temperature 98.1 98.1 [facility] Respiratory Effort 1 1 [facility] Respiratory Rate [address] [facility] Pulse Assessment Method 4 4 G [facility] Pulse Rate 125 125 [facility] pital Height (Calculated Centimeters) 185.42 185. 42 [facility] Height 73 73 [facility] Blood Pressure 127/91 127/91 [facility] Body Mass Index (BMI) 35.[address] [facility] Weight (Calculated Kilograms) 123.47 123.47 [facility] Height (Calculated Centimeters) 185.42 185. 42 [facility] Body Mass Index (BMI) 35.[address] ID Date Data Source [id number] 05/05/2019 06:30:00 AM EST [facility] Name Value Range Interpretation Code Description Data Source(s) Weight Measurement Method 8 8 [facility] Weight (Calculated Kilograms) 123.47 123.47 [facility] Weight 4640 4640 [facility] pital Temperature Source 7 7 [facility] Temperature 97.9 97.9 [facility] Respiratory Effort 1 1 [facility] Respiratory Rate [address] [facility] Pulse Assessment Method 4 4 G [facility] Pulse Rate 116 116 [facility] pital Height (Calculated Centimeters) 185.42 185. 42 [facility] Height 73 73 [facility] Blood Pressure 157/99 157/99 [facility] Body Mass Index (BMI) 35.[address] [facility] Weight Measurement Method 8 8 [facility] Weight (Calculated Kilograms) 123.47 123.47 [facility] Weight 4640 4640 [facility] pital Temperature Source 7 7 [facility] Temperature 97.9 97.9 [facility] Respiratory Effort 1 1 [facility] Respiratory Rate [address] [facility] Pulse Assessment Method 4 4 G [facility] Pulse Rate 116 116 [facility] Height (Calculated Centimeters) 185.42 185. 42 [facility] Height 73 73 [facility] Blood Pressure 175/136 175/136 [facility] Body Mass Index (BMI) 35.[address] [facility] Weight (Calculated Kilograms) 123.47 123.47 [facility] Height (Calculated Centimeters) 185.42 185. 42 [facility] Body Mass Index (BMI) 35.[address] [facility] ID Date Data Source [id number] 04/02/2019 08:26:00 AM EST [facility] Name Value Range Interpretation Code Description Data Source(s) Weight Measurement Method 8 8 [facility] Weight (Calculated Kilograms) 123.47 123.47 [facility] Weight 4480 4480 [facility] pital Temperature Source 7 7 [facility] Temperature 96.7 96.7 [facility] Respiratory Effort 1 1 [facility] Respiratory Rate [address] [facility] Pulse Assessment Method 4 4 G [facility] Pulse Rate 107 107 [facility] Height (Calculated Centimeters) 185.42 185. 42 [facility] Height 72 72 [facility] pital Blood Pressure 148/84 148/84 [facility] Body Mass Index (BMI) 35.[address] [facility] Weight Measurement Method 8 8 [facility] Weight (Calculated Kilograms) 123.47 123.47 [facility] Weight 4480 4480 [facility] pital Temperature Source 7 7 [facility] Temperature 96.7 96.7 [facility] Respiratory Effort 1 1 [facility] Respiratory Rate [address] [facility] Pulse Assessment Method 4 4 G [facility] Pulse Rate 96 96 [facility] pital Height (Calculated Centimeters) 185.42 185. 42 [facility] Height 72 72 [facility] Blood Pressure 167/108 167/108 [facility] Body Mass Index (BMI) 35.[address] [facility] Weight (Calculated Kilograms) 123.47 123.47 [facility] Height (Calculated Centimeters) 185.42 185. 42 [facility] Body Mass Index (BMI) 35.[address] ID Date Data Source [id number] 06/12/2019 03:53:34 PM [facility] Name Value Range Interpretation Code Description Data Source(s) WEIGHT RECORDED 257.94 lb 257.94 lb [facility] Body height Measured 72.[address] [facility]
[2020-05-19] MEDS ORDERED: KETOROLAC 30 MG/ML 1ML VIAL IV ONE (02:15)
[2020-05-19 02:32] LABS: BASO % 0.4 % (0.0-1.0); EOS # 0.3 10^3/uL (0.0-0.5); EOS % 3.5 % (0.0-3.0); HEMATOCRIT 38.7 % (42.0-52.0); LYMPH # 2.9 10^3/uL (1.5-5.0); LYMPH % 32.5 % (24.0-44.0); MEAN CORPUSCULAR HEMOGLOBIN 28.8 pg (27.0-33.0); MEAN CORPUSCULAR HGB CONC 33.6 g/dl (32.0-36.5); MEAN CORPUSCULAR VOLUME 85.8 fl (80.0-96.0); MONO % 10.5 % (0.0-5.0); NEUTROPHILS # 4.8 10^3/uL (1.5-8.5); NEUTROPHILS % 52.7 % (36.0-66.0); PLATELET COUNT, AUTOMATED 229 10^3/uL (150-450); RED BLOOD COUNT 4.51 10^6/uL (4.30-6.10); WHITE BLOOD COUNT 9.1 10^3/uL (4.0-10.0)
[2020-05-19 03:03] LABS: BLOOD UREA NITROGEN 20 MG/DL (7-18); CALCIUM LEVEL 8.6 MG/DL (8.5-10.1); CARBON DIOXIDE LEVEL 29 MEQ/L (21-32); CHLORIDE LEVEL 111 MEQ/L (98-107); CK-MB VALUE MASS 2.4 NG/ML (<3.6); CPK CREATINE PHOSPHOKINASE 185 U/L (39-308); CREATININE FOR GFR 1.06 MG/DL (0.70-1.30); GLOMERULAR FILTRATION RATE > 60.0 (>60); GLUCOSE, FASTING 131 MG/DL (70-100); POTASSIUM SERUM 3.9 MEQ/L (3.5-5.1); SODIUM LEVEL 144 MEQ/L (136-145); TROPONIN I < 0.02 NG/ML (< 0.10)
[2020-05-19] MEDS ORDERED: NORV5TAB PO (03:21)
[2020-05-19] MEDS ORDERED: amLODIPine 5 MG TAB PO ONE (03:30)
--- OUTSIDE RECORDS SUMMARY | 2020-05-19 03:40 | CCD ---
Author Author [facility] Organization [facility] Address Unknown Phone Unavailable Care Team Providers Care Licensed Nursing Assistant Name Role Phone PETROFF, BARRETT PA Unavailable [...] W Mahsa RPA-C Unavailable Unavailable Bridges, W Amhsa RPA-C Unavailable Unavailable KRISSY, JEWELL PA Unavailable [...] CRUMP MD Unavailable Unavailable Cougler, S Kade GROUND SUPPORT AGENT Unavailable Unavailable Cougler, S Kade GROUND SUPPORT AGENT Unavailable Unavailable Cougler, S Kade GROUND SUPPORT AGENT Unavailable Unavailable Cougler, S Kade GROUND SUPPORT AGENT Unavailable Unavailable Cougler, S Kade GROUND SUPPORT AGENT Unavailable Unavailable Cougler, S Kade GROUND SUPPORT AGENT Unavailable Unavailable Cougler, S Kade GROUND SUPPORT AGENT Unavailable Unavailable Cougler, S Kade GROUND SUPPORT AGENT Unavailable Unavailable Cougler, S Kade GROUND SUPPORT AGENT Unavailable Unavailable Cougler, S Kade GROUND SUPPORT AGENT Unavailable Unavailable Cougler, S Kade GROUND SUPPORT AGENT Unavailable Unavailable Cougler, S Kade GROUND SUPPORT AGENT Unavailable Unavailable Cougler, S Kade GROUND SUPPORT AGENT Unavailable Unavailable Cougler, S Kade GROUND SUPPORT AGENT Unavailable Unavailable Cougler, S Kade GROUND SUPPORT AGENT Unavailable Unavailable Cougler, S Kade GROUND SUPPORT AGENT Unavailable Unavailable Cougler, S Kade GROUND SUPPORT AGENT Unavailable Unavailable Cougler, S Kade GROUND SUPPORT AGENT Unavailable Unavailable Cougler, S Kade GROUND SUPPORT AGENT Unavailable Unavailable Cougler, S Kade GROUND SUPPORT AGENT Unavailable Unavailable Cougler, S Kade GROUND SUPPORT AGENT Unavailable Unavailable Cougler, S Kade GROUND SUPPORT AGENT Unavailable Unavailable Cougler, S Kade GROUND SUPPORT AGENT Unavailable Unavailable Cougler, S Kade GROUND SUPPORT AGENT Unavailable Unavailable Cougler, S Kade GROUND SUPPORT AGENT Unavailable Unavailable Cougler, S Kade GROUND SUPPORT AGENT Unavailable Unavailable Cougler, S Kade GROUND SUPPORT AGENT Unavailable Unavailable Cougler, S Kade GROUND SUPPORT AGENT Unavailable Unavailable Cougler, S Kade GROUND SUPPORT AGENT Unavailable Unavailable Cougler, S Kade GROUND SUPPORT AGENT Unavailable Unavailable Cougler, S Kade GROUND SUPPORT AGENT Unavailable Unavailable Cougler, S Kade GROUND SUPPORT AGENT Unavailable Unavailable Cougler, S Kade GROUND SUPPORT AGENT Unavailable Unavailable Cougler, S Kade GROUND SUPPORT AGENT Unavailable Unavailable Cougler, S Kade GROUND SUPPORT AGENT Unavailable Unavailable Cougler, S Kade GROUND SUPPORT AGENT Unavailable Unavailable Cougler, S Kade GROUND SUPPORT AGENT Unavailable Unavailable Cougler, S Kade GROUND SUPPORT AGENT Unavailable Unavailable Cougler, S Kade GROUND SUPPORT AGENT Unavailable Unavailable Huntley, R Luis Fernando PA [...] MARAVEGIAS, Alfredito MEZA MD Unavailable Unavailable MARAVEGIADanilo, Alfrdeito MEZA MD Unavailable Unavailable MARAVEGIAS, Alfredito MEZA MD Unavailable Unavailable MARAVEGIAS, Alfredito MEZA MD Unavailable Unavailable MARAVEGIADanilo, Alfredito MEZA MD Unavailable Unavailable MARAVEGIADanilo, Alfredito MEZA MD Unavailable Unavailable MARAVEGIADanilo, Alfredito MEZA MD Unavailable Unavailable MARAVEGIAS, Alfredito MEZA MD Unavailable Unavailable MARAVEGIAS, Alfredito MEZA MD Unavailable Unavailable MARAVEGIADanilo, N SAIDA JOLLY Unavailable Unavailable MARAVEGIAS, N SAIDA JOLLY Unavailable Unavailable BROWN, GUY NICHOLAS GROUND SUPPORT AGENT Unavailable Unavailable BROWN, GUY NICHOLAS GROUND SUPPORT AGENT Unavailable Unavailable BROWN, GUY NICHOLAS GROUND SUPPORT AGENT Unavailable Unavailable BROWN, GUY NICHOLAS GROUND SUPPORT AGENT Unavailable Unavailable BROWN, GUY NICHOLAS GROUND SUPPORT AGENT Unavailable Unavailable BROWN, GUY NICHOLAS GROUND SUPPORT AGENT Unavailable Unavailable BROWN, GUY NICHOLAS GROUND SUPPORT AGENT Unavailable Unavailable BROWN, GUY NICHOLAS GROUND SUPPORT AGENT Unavailable Unavailable BROWN, GUY NICHOLAS GROUND SUPPORT AGENT Unavailable Unavailable BROWN, GUY NICHOLAS GROUND SUPPORT AGENT Unavailable Unavailable BROWN, GUY NICHOLAS GROUND SUPPORT AGENT Unavailable Unavailable BROWN, GUY NICHOLAS GROUND SUPPORT AGENT Unavailable Unavailable BROWN, GUY NICHOLAS GROUND SUPPORT AGENT Unavailable Unavailable BROWN, GUY NICHOLAS GROUND SUPPORT AGENT Unavailable Unavailable BROWN, GUY NICHOLAS GROUND SUPPORT AGENT Unavailable Unavailable BROWN, GUY NICHOLAS GROUND SUPPORT AGENT Unavailable Unavailable BROWN, GUY NICHOLAS GROUND SUPPORT AGENT Unavailable Unavailable BROWN, GUY NICHOLAS GROUND SUPPORT AGENT Unavailable Unavailable BROWN, GUY NICHOLAS GROUND SUPPORT AGENT Unavailable Unavailable BROWN, GUY NICHOLAS GROUND SUPPORT AGENT Unavailable Unavailable BROWN, GUY NICHOLAS GROUND SUPPORT AGENT Unavailable Unavailable BROWN, GUY NICHOLAS GROUND SUPPORT AGENT Unavailable Unavailable BROWN, GUY NICHOLAS GROUND SUPPORT AGENT Unavailable Unavailable BROWN, GUY NICHOLAS GROUND SUPPORT AGENT Unavailable Unavailable BROWN, GUY NICHOLAS GROUND SUPPORT AGENT Unavailable Unavailable BROWN, GUY NICHOLAS GROUND SUPPORT AGENT Unavailable Unavailable BROWN, GUY NICHOLAS GROUND SUPPORT AGENT Unavailable Unavailable BROWN, GUY NICHOLAS GROUND SUPPORT AGENT Unavailable Unavailable BROWN, GUY NICHOLAS GROUND SUPPORT AGENT Unavailable Unavailable BROWN, GUY NICHOLAS GROUND SUPPORT AGENT Unavailable Unavailable BROWN, GUY NICHOLAS GROUND SUPPORT AGENT Unavailable Unavailable BROWN, GUY NICHOLAS GROUND SUPPORT AGENT Unavailable Unavailable BROWN, GUY NICHOLAS GROUND SUPPORT AGENT Unavailable Unavailable BROWN, GUY NICHOLAS GROUND SUPPORT AGENT Unavailable Unavailable BROWN, GUY NICHOLAS GROUND SUPPORT AGENT Unavailable Unavailable BROWN, GUY NICHOLAS GROUND SUPPORT AGENT Unavailable Unavailable BROWN, GUY NICHOLAS GROUND SUPPORT AGENT Unavailable Unavailable BROWN, GUY NICHOLAS GROUND SUPPORT AGENT Unavailable Unavailable BROWN, GUY NICHOLAS GROUND SUPPORT AGENT Unavailable Unavailable PASTORA, DANIELLE PA Unavailable Unavailable [...] MILLER MD Unavailable Unavailable Neelima MERRILL Unavailable [phone] Neelima MERRILL Unavailable [phone] Neelima MERRILL Unavailable [phone] Neelima MERRILL Unavailable [phone] Neelima MERRILL Unavailable [phone] Tiffanie MCFARLANE PA Unavailable Unavailable MCFARLANE, W CHIRAG PA [...] is protected by Article 27-F of the [facility] Public Health law. If you continue you may have access to information: Regarding HIV / AIDS; Provided by facilities licensed or operated by the [facility] Office of Mental Health; or Provided by the [facility] Office for People With Developmental Disabilities. If such information is present, then the following [facility] mandated warning applies: This information has [...] law may result in a fine or mcfp sentence or both. A general authorization for the release of medical or other information is NOT sufficient authorization for further disc losure. Allergies and Adverse Reactions Type Description Substance Reaction Status Data Source(s ) Drug allergy Drug allergy bee venom protein (honey bee) 'Throat Swell s' [facility] Drug allergy Drug allergy onion Anaphylactic Shock S [facility] Drug allergy Drug allergy clindamycin Diarrhea [facility] Drug allergy Drug allergy hydroxyzine Hives I [facility] Encounters Encounter Providers Location Date Indications Data Source(s ) Emergency Attender: JEWELL GONZALEZ EMERGENCY ROOM-ER 12/2019 01:11:00 AM EST - 04/06/2020 03:42:00 AM EST [facility] Patient discharged. Emergency Attender: SAIDA RUIZ MD ED-ED 0 12/15/2019 12:03:00 PM EDT - 12/15/2019 01:29:00 PM EDT RIGHT KNEE INJ [facility] RIGHT KNEE INJ Patient discharged. Emergency Attender: Luis Fernando Hansen: Luis Fernando GONZALEZ ED-ED 08/16/2019 11:43:00 PM EDT - 08/17/2019 01:36:00 AM EDT RT FOOT PAIN [facility] RT FOOT PAIN Patient discharged. Emergency Attender: Luis Fernando Hansen: Luis Fernando GONZALEZ ED-ED 06/24/2019 09:09:00 PM EST - 06/25/2019 12:13:00 AM EST HEADACHE RUNNY NOSE SORE THROAT [facility] HEADACHE RUNNY NOSE SORE THROAT Patient discharged. Emergency Attender: DANIELLE GONZALEZ ED-ED 05/15 03:20:00 PM EST - 05/15/2019 04:09:00 PM EST BODY ACHES FEVER [facility] BODY ACHES FEVER Patient discharged. Emergency Attender: Luis Fernando Amor nder: Luis Fernando Hansen: Kade Ortega NP ED-ED 04/27/2019 07:56:00 PM EST - 04/27/2019 09:41:00 PM EST BP HIGH [facility] BP HIGH Patient discharged. Emergency Attender: DARON GONZALEZ ED-ED 04/01 03:06:00 PM EST - 04/01/2019 04:58:00 PM EST PAIN IN BOTH FEET, BLURYR VISION [facility] PAIN IN BOTH FEET, BLURYR VISION Patient discharged. Emergency Attender: MAHSA Conteh: TONY CRUMP MD EMERGENCY ROOM-ER 03/16/2016 01:02:00 AM EST - 03/16/2016 02:38:00 AM [facility] Emergency Attender: BARRETT BROWN PAReferrer: NICHOLAS LYON NP 12/16/2015 10:59:00 AM EDT - 12/16/2015 11:38:00 AM EDT [facility] Emergency Attender: MARTHA DEVINE PAReferrer: NICHOLAS ARSHAD NP 06/22/2015 11:21:00 PM EST - 06/23/2015 12:05:00 AM [facility] Emergency Attender: Mahsa Bridges RPA-CReferrer: BEKAH LYON GROUND SUPPORT AGENT EMERGENCY ROOM-ER 05/18/2015 10:43:00 PM EST - 05/19/2015 12:50:00 AM [facility] Emergency Attender: JULIET SMITH PA EMERGENCY ROOM- ER 03/25/2015 10:37:00 PM EST - 03/25/2015 11:58:00 PM [facility] Emergency Attender: CHIRAG MCFARLANE PA EMERGENCY ROOM-ER 2014 01:11:00 PM EDT - 08/09/2014 03:00:00 PM [facility] Outpatient Attender: ISABELA MILLER MDAt tender: JUSTINE PATEL MDAdmitter: ISABELA MILLER MD 07/14/2013 10:45:19 PM EDT - 07/17/2013 04:22:00 PM EDT Lumbar spinal cord injury without evidence of spinal bone injury [facility] Lumbar spinal cord injury without eviden ce [...] type / Coverage type Policy ID Covered green party ID Covered green party's relationship to mckeon Policy Mckeon Plan Information SELF PAY ONLY [id number] SP [id number] SELF PAY [id number] S [id number] MEDICAID [id number] S [id number] [employer] [employer] [id number] S [id number] [place] [id number] S [id number] [place] [employer] [id number] S [id number] [place] [id number] S [id number] SELF PAY UNAVAILABLE S UNAVAILA BLE O UNAVAILABLE UNAVAILA BLE MEDICARE [id number] S [id number] FINANCIAL ASSISTANCE 537 S 537 EMED[place] [id number] SP [id number] MEDICARE [id number] SP [id number] MEDICARE [id number] SP [id number] PREFERRED INSURANCE E [id number] Inf [id number] MEDICARE [id number] S [id number] MEDICAID [id number] [place] [id number] Self [id number] Medicare Medicare Primary [id number] Self 1 [id number] MEDICAID [id number] SP [id number] MEDICARE A [id number] Self [id number] MEDICAID M [id number] Self [id number] MEDICARE A [id number] Self [id number] MEDICAID -O/P EMERGENCY ROOM [id number] 18 [id number] MEDICARE -O/P [id number] 18 [id number] MEDICAID -CLINIC [id number] MEDICARE -CLINIC [id number] 18 1 [id number] MEDICAID -PHYSICIAN [id number] MEDICARE PART A -O/P [id number] 18 [id number] MEDICAID -O/P [id number] MEDICAID -O/P [id number] MEDICARE -O/P [id number] 18 [id number] MEDICARE -CLINIC [id number] 18 12 [id number] MEDICAID M [id number] S [id number] MEDICAID W [id number] S [id number] MEDICARE OUTPATIENT M [id number] S [id number] MEDICAID -O/P W [id number] Problems, Conditions, and Diagnoses Code Display Name Description Problem Type Effective Dates Data Source(s) Y93.89 Activity, other specified ACTIVITY, OTHER SPECIFIED Di agnosis 04/06/2020 01:11:00 AM [facility] Y92.[address] in unspeci fied non-institutional (private) residence as the place of occurrence of the external cause UNSP PLACE IN UNSP NON-INSTITUT (PRIVATE) RESIDENC Diagnosis 04/06/2020 01:11:00 AM [facility] W10.8XXA Fall (on) (from) other stairs and steps, initial encounter FALL (ON) (FROM) OTHER STAIRS AND STEPS, INITIAL E Diagnosis 04/06/2020 01:11:00 AM [facility] F17.210 Nicotine dependence, cigarettes, uncompl icated NICOTINE DEPENDENCE, CIGARETTES, UNCOMPLICATED Diagnosis 04/06/2020 01:11:00 AM [facility] I10 Essential (primary) hypertension ESSENTIAL (PRIMARY) H YPERTENSION Diagnosis 04/06/2020 01:11:00 AM [facility] S29.012A Strain of muscle and tendon of back wall of thorax, initial encounter STRAIN OF MUSCLE AND TENDON OF BACK WALL OF THORAX Diagnosis 12/2019 01:11:00 AM [facility] S39.012A Strain of muscle, fascia and tendon of l ower back, initial encounter STRAIN OF MUSCLE, FASCIA AND TENDON OF LOWER BACK, Diagnosis 12/2019 01:11:00 AM [facility] M51.84 Other intervertebral disc disorders, tho racic region OTHER INTERVERTEBRAL DISC DISORDERS, THORACIC REMIGIO Diagnosis 04/06/2020 01:11:00 AM [facility] M51.36 Other intervertebral disc degeneration, lumbar region OTHER INTERVERTEBRAL DISC DEGENERATION, LUMBAR REG Diagnosis 0 01:11:00 AM [facility] S22.070A Wedge compression fracture o f T9-T10 vertebra, initial encounter for closed fracture WEDGE COMPRESSION FRACTURE OF T9-T10 VERTEBRA, INI Diagnosis 04/06/2020 01:11:00 AM [facility] S22.060A Wedge compression fracture o f T7-T8 vertebra, initial encounter for closed fracture WEDGE COMPRESSION FRACTURE OF T7-T8 VERTEBRA, INIT Diagnosis 04/06/2020 01:11:00 AM [facility] S39.92XA Unspecified injury of lower back, initia l encounter UNSPECIFIED INJURY OF LOWER BACK, INITIAL ENCOUNTER Diagnosis 04/06/2020 01:11:00 AM [facility] R91.1 Solitary pulmonary nodule SOLITARY PULMONARY NODULE Di agnosis 04/27/2019 07:56:00 PM [facility] I10 Essential (primary) hypertension ESSENTIAL (PRIMARY) H YPERTENSION Diagnosis 04/27/2019 07:56:00 PM [facility] Surgeries/Procedures Procedure Description Date Indications Data Source(s) INFECTIOUS AGENT DNA/RNA INFLUENZA 1ST 2 TYPES INFLUENZA DNA AMP PROBE 05/15/2019 12:00:00 AM [facility] Non-covered item or service 05/15/2019 12:00:00 AM [facility] EMERGENCY DEPARTMENT VISIT MODERATE SEVERITY EMERGENCY DEPT VISIT 05/15/2019 12:00:00 AM [facility] [address] X-RAY EXAM CHEST 2 VIEWS 04/27/2019 12:00:00 AM [facility] ECG ROUTINE ECG W/LEAST 12 LDS TRCG ONLY W/O I&R ELECTROCARD IOGRAM TRACING 04/27/2019 12:00:00 AM [facility] URNLS DIP STICK/TABLET REAGENT AUTO MICROSCOPY URINALYSIS AU TO W/SCOPE 04/27/2019 12:00:00 AM [facility] COLLECTION VENOUS BLOOD VENIPUNCTURE ROUTINE VENIPUNCTURE 12:00:00 AM [facility] BLOOD COUNT COMPLETE AUTO&AUTO DIFRNTL WBC COUNT COMPLETE CB C W/AUTO DIFF WBC 04/27/2019 12:00:00 AM [facility] NATRIURETIC PEPTIDE ASSAY OF NATRIURETIC PEPTIDE 04/27/2019 12:00:0 0 AM [facility] TROPONIN QUANTITATIVE ASSAY OF TROPONIN QUANT 04/27/2019 12:00:00 A M [facility] COMPREHENSIVE METABOLIC PANEL COMPREHEN METABOLIC PANEL 03/31 12:00:00 AM [facility] EMERGENCY DEPT VISIT HIGH SEVERITY&THREAT FUNCJ EMERGENCY DE PT VISIT 04/27/2019 12:00:00 AM [facility] Results ID Date Data Source [id number] 04/06/2020 07:15:[address] [facility]UM[facility] WITHOUT CONTRAST DATE [...] rce(s) Supporting Document(s) ID Date Data Source [id number] 04/06/2020 [facility]12:[facility] DORSAL SPINE WITHOUT CONTRAST DATE [...] rce(s) Supporting Document(s) ID Date Data Source [id number] 04/06/2020 07:10:00 AM [facility] [...] rce(s) Supporting Document(s) ID Date Data Source [id number] 04/06/2020 07:09:00 AM EST [facility] [...] Name Value Range Interpretation Code Description Data [facility](s) Supporting Document(s) ID Date Data Source [id number] 04/06/2020 03:49:00 AM EST [facility] Patient: BETTE CARSON Observation Rep ort - [facility].VisitID: [id number] [place] [address] [phone], MRegistration Date/Time: 04/06/2020 00:43 Weight:136 kg (S). [...] rce(s) Supporting Document(s) ID Date Data Source [id number] 04/06/2020 01:24:00 AM EST [facility] TSYSORDER [id number] Name Value Range Interpretation Code Description Data Jossy rce(s) Supporting Document(s) URINE RBC 0-2 /hpf 0-3 [facility] URINE WBC NONE SEEN /hpf 0-5 [facility] ID Date Data Source [id number] 04/06/2020 01:18:00 AM EST [facility] TSYSORDER [id number] Name Value Range Interpretation Code Description Data Jossy rce(s) Supporting Document(s) URINE COLOR. YELLOW [facility] URINE APPEARANCE CLEAR [facility] URINE GLUCOSE (UA) NEGATIVE mg/dL NEGATIVE [facility] URINE BILIRUBIN NEGATIVE NEGATIVE [facility] URINE KETONE NEGATIVE mg/dL NEGATIVE [facility] SPECIFIC GRAVITY,URINE 1.020 1.001-1.035 [facility] URINE BLOOD TRACE NEGATIVE H [facility] PH,URINE 7.0 5.0-9.0 [facility] URINE PROTEIN NEGATIVE mg/dL NEGATIVE [facility] URINE UROBILINOGEN NORMAL(0.2-1) mg/dL 0-1 R [facility] URINE NITRATE NEGATIVE NEGATIVE [facility] URINE LEUKOCYTE ESTERASE NEGATIVE NEGATIVE [facility] ID Date Data Source [id number] 12/15/2019 02:59:00 PM EDT [facility] Imaging Services Department Imaging Report [address] [place] [address] %(RAD)RES..mtdd.print.filter("line") Name: BETTE CARSON : 1980 Age/Sex: 39M Ordering Provider: Saida Ruiz MD Med Rec #: [id number] Reg Status: [facility] ER Room #: Date of Service: 12/15/19 Report Number: [id number] cc:Kade Ortega NP Send Report To: [id number] XRP/XR Knee Rt 3 View Reason for [...] Date/Time: 12/15/19 1405 Transcribed Date/Time: 12/15/19 1459 [facility] Supervisor: YOLA Name Value Range Interpretation Code Description Data Jossy rce(s) Supporting Document(s) ID Date Data Source [id number] 08/17/2019 01:21:00 AM EDT [facility] Name Value Range Interpretation Code Description Data Jossy rce(s) Supporting Document(s) Uric Acid 3.5-7.2 Above high normal [facility] ospital ID Date Data Source [id number] 06/24/2019 10:56:00 PM EST [facility] Name Value Range Interpretation Code Description Data Jossy rce(s) Supporting Document(s) White Blood Count 3.5-10.5 Normal (applies to non-numeri c results) [facility] Red Blood Count 4.30-5.70 Normal (applies to non-numeric results) [facility] Hemoglobin 13.5-17.5 Normal (applies to non-numeric resul ts) [facility] Hematocrit 38.8-50.0 Normal (applies to non-numeric resul ts) [facility] Mean Corpuscular Volume 81.2-95.1 Normal (applies to non- numeric results) [facility] Mean Corpuscular Hgb 25.6-32.2 Normal (applies to non-num martha results) [facility] Mean Corpuscular Hgb Conc 32.0-36.0 Normal (applies to no n-numeric results) [facility] Red Cell Distribution Width 11.8-15.6 Normal (appli es to non-numeric results) [facility] Platelet Count 221 x10 3/uL 150-450 Normal (applies to non-numeric results) [facility] Mean Platelet Volume 9.4-12.4 Normal (applies to non-num martha results) [facility] Neutrophils% (Auto) 31.0-71.0 Normal (applies to non-nume barbara results) [facility] Lymphocytes% (Auto) 20.0-55.0 Normal (applies to non-nume barbara results) [facility] Monocytes% (Auto) 4.0-12.0 Normal (applies to non-numeri c results) [facility] Eosinophils% (Auto) 1.0-8.0 Normal (applies to non-nume barbara results) [facility] Basophils% (Auto) 0.0-2.0 Normal (applies to non-numeri c results) [facility] Immature Granulocytes% (Auto) 0.0-2.0 Normal (trina lies to non-numeric results) [facility] Neutrophils# (Auto) 1.50-6.20 Normal (applies to non-nume barbara results) [facility] Lymphocytes# (Auto) 1.20-4.00 Normal (applies to non-nume barbara results) [facility] Monocytes# (Auto) 0.00-0.90 Normal (applies to non-numeri c results) [facility] Eosinophils# (Auto) 0.00-0.50 Normal (applies to non-nume barbara results) [facility] Basophils# (Auto) 0.00-0.20 Normal (applies to non-numeri c results) [facility] Immature Granulocytes# (Auto) 0.00-7.00 No rmal (applies to non-numeric results) [facility] ID Date Data Source [id number] 06/26/2019 01:42:00 PM [facility] Imaging Services Department Imaging Report [address] [place] [id number] %(RAD)RES..mtdd.print.filter("line") Name: BETTE CARSON : 1980 Age/Sex: 39M Ordering Provider: LISA Ochoa Med Rec #: [id number] Reg Status: [facility] Room #: Date of Service: 06/24/19 Report Number: [id number] cc:Kade Ortega NP Send Report To: [id number] XRP/XR Chest 2 View [Pa & Lat] [...] Date/Time: 06/26/19 0939 Transcribed Date/Time: 06/26/19 1342 [facility] Supervisor: JEANE Name Value Range Interpretation Code Description Data Jossy rce(s) Supporting Document(s) ID Date Data Source [id number] 06/24/2019 09:48:00 PM EST [facility] [...] Name Value Range Interpretation Code Description Data [facility] Supporting Document(s) ID Date Data Source [id number] 06/24/2019 09:46:00 PM EST [facility] spital Method performed by isothermal nucleic acid amplification. Reference value: Negative for Strep A nucleic acid. Confirmatory culture is NOT required for negative results unless clinical symptoms persist, in the event of an acute rheumatic fever outbreak, or if ordered by provider.Negative Name Value Range Interpretation Code Description Data [facility](s) Supporting Document(s) ID Date Data Source [id number] 05/15/2019 03:53:00 PM EST [facility] spital Method performed by Isothermal Nucle ic [...] Name Value Range Interpretation Code Description Data [facility](s) Supporting Document(s) ID Date Data Source [id number] 04/27/2019 09:15:00 PM [facility] Collected By: Nurse Initials: pc Time Collected: 2037 Collected By: Nurse Initials: pc Time Collected: 2037 Name Value Range Interpretation Code Description Data [facility](s) Supporting Document(s) Color,Urine Colorl-Dk Y Normal (applies to non-numeric res ults) [facility] Clarity,Urine Clear Normal (applies to non-numeric re sults) [facility] Specific [place],Urine 1.015-1.025 Normal (applies to non- numeric results) [facility] pH,Urine 5.0-7.0 Normal (applies to non-numeric resul ts) [facility] Protein,Urine Negative [facility] Glucose,Urine Negative Normal (applies to non-numeric re sults) [facility] Ketones,Urine Negative Normal (applies to non-numeric re sults) [facility] Blood,Urine Negative Normal (applies to non-numeric resu lts) [facility] System Bilirubin,Urine Negative Normal (applies to non-numeric results) [facility] Urobilinogen,Urine Normal Normal (applies to non-numer ic results) [facility] Leukocyte Esterase,Urine Negative Normal (applies to non -numeric results) [facility] Nitrite,Urine Negative Normal (applies to non-numeric re sults) [facility] ID Date Data Source [id number] 04/27/2019 09:15:00 PM [facility] Collected By: Nurse Initials: pc Time Collected: 2037 Collected By: Nurse Initials: pc Time Collected: 2037 Name Value Range Interpretation Code Description Data Jossy rce(s) Supporting Document(s) WBC,Urine None Seen [facility] Bacteria,Urine None Seen [facility] ital ID Date Data Source [id number] 04/28/2019 08:02:00 AM [facility] Imaging Services Department Imaging Report [address] [place] [address] %(RAD)RES..mtdd.print.filter("line") Name: BETTE CARSON : 1980 Age/Sex: 39M Ordering Provider: LISA Ochoa Med Rec #: [id number] Reg Status: [facility] ER Room #: Date of Service: 04/27/19 Report Number: [id number] cc:Kade Ortega NP Send Report To: [id number] XRP/XR Chest 2 View [Pa & Lat] [...] Date/Time: 04/28/19 0640 Transcribed Date/Time: 04/28/19 0802 [facility] Supervisor: JEANE Name Value Range Interpretation Code Description Data Jossy rce(s) Supporting Document(s) ID Date Data Source [id number] 04/27/2019 09:17:00 PM [facility] Name Value Range Interpretation Code Description Data [facility] rce(s) Supporting Document(s) B-Type Natriuretic Peptide BNP <125 Normal (applies to non-numeric results) [facility] Results of this test should always be us ed in conjunction with the patients medical history, clinical presentation, and other findings. ID Date Data Source [id number] 04/27/2019 09:10:00 PM [facility] Name Value Range Interpretation Code Description Data [facility] rce(s) Supporting Document(s) Sodium 140 mmol/L 136-145 Normal (applies to non-numeric resul ts) [facility] Potassium 3.5-5.1 Normal (applies to non-numeric resul ts) [facility] Chloride 105 mmol/L 98-107 Normal (applies to non-numeric resul ts) [facility] Carbon Dioxide CO2 21-32 Normal (applies to non-numer ic results) [facility] Anion Gap 5.0-16.0 Normal (applies to non-numeric resul ts) [facility] BUN 13 mg/dL 7-18 Normal (applies to non-numeric results) [facility] Creatinine,Serum 0.8-1.5 Normal (applies to non-numeric results) [facility] GFR >60 Normal (applies to non-numeric results) [facility] Glucose Level 157 mg/dL 60-99 Above high normal [facility] Reference range is only applicable when patient is fasting Note the following drug interference: Sulfasalazine Sulfapyridine Can see falsely depressed Can see falsely elevated result with up to 17% results with up to 11% decrease in measurement increase in measurement Recommend patients be collected for this test prior to administration of either drug. Calcium 8.5-10.1 Normal (applies to non-numeric resul ts) [facility] Bilirubin,Total 0.1-1.9 Normal (applies to non-numeric results) [facility] SGOT(AST) 28 U/L 15-37 Normal (applies to non-numeric resul ts) [facility] Note the following drug interference: Sulfasalazine Sulfapyridine Can see falsely depressed Can see falsely elevated result with up to 10% results with up to 10% decrease in measurement increase in measurement Recommend patients be collected for this test prior to administration of either drug. SGPT(ALT) 66 U/L 12-78 Normal (applies to non-numeric resul ts) [facility] Note the following drug interference: Sulfasalazine Sulfapyridine Can see falsely depressed Can see falsely elevated result with up to 29% results with up to 10% decrease in measurement increase in measurement Recommend patients be collected for this test prior to administration of either drug. Alkaline Phosphatase 103 U/L 38-126 Normal (applies to non-num martha results) [facility] can increase Alkaline Phosp le vels up to 2 times the normal adult value. Normal values for children and adolescents are 2 to 3 times the normal adult value. Total Protein 6.0-8.2 Normal (applies to non-numeric re sults) [facility] Albumin Level 3.4-5.0 Normal (applies to non-numeric re sults) [facility] ID Date Data Source [id number] 04/27/2019 09:10:00 PM EST [facility] Name Value Range Interpretation Code Description Data Jossy rce(s) Supporting Document(s) Troponin I 0.000-0.056 Normal (applies to non-numeric resu lts) [facility] ID Date Data Source [id number] 04/27/2019 08:56:00 PM EST [facility] Name Value Range Interpretation Code Description Data Jossy rce(s) Supporting Document(s) White Blood Count 3.5-10.5 Normal (applies to non-numeri c results) [facility] Red Blood Count 4.30-5.70 Normal (applies to non-numeric results) [facility] Hemoglobin 13.5-17.5 Normal (applies to non-numeric resul ts) [facility] Hematocrit 38.8-50.0 Normal (applies to non-numeric resul ts) [facility] Mean Corpuscular Volume 81.2-95.1 Normal (applies to non- numeric results) [facility] Mean Corpuscular Hgb 25.6-32.2 Normal (applies to non-num martha results) [facility] Mean Corpuscular Hgb Conc 32.0-36.0 Normal (applies to no n-numeric results) [facility] Red Cell Distribution Width 11.8-15.6 Normal (appli es to non-numeric results) [facility] Platelet Count 251 x10 3/uL 150-450 Normal (applies to non-numeric results) [facility] Mean Platelet Volume 9.4-12.4 Normal (applies to non-num mratha results) [facility] Neutrophils% (Auto) 31.0-71.0 Normal (applies to non-nume barbara results) [facility] Lymphocytes% (Auto) 20.0-55.0 Normal (applies to non-nume barbara results) [facility] Monocytes% (Auto) 4.0-12.0 Normal (applies to non-numeri c results) [facility] Eosinophils% (Auto) 1.0-8.0 Normal (applies to non-nume barbara results) [facility] Basophils% (Auto) 0.0-2.0 Normal (applies to non-numeri c results) [facility] Immature Granulocytes% (Auto) 0.0-2.0 Normal (trina lies to non-numeric results) [facility] Neutrophils# (Auto) 1.50-6.20 Normal (applies to non-nume barbara results) [facility] Lymphocytes# (Auto) 1.20-4.00 Normal (applies to non-nume barbara results) [facility] Monocytes# (Auto) 0.00-0.90 Normal (applies to non-numeri c results) [facility] Eosinophils# (Auto) 0.00-0.50 Normal (applies to non-nume barbara results) [facility] Basophils# (Auto) 0.00-0.20 Normal (applies to non-numeri c results) [facility] Immature Granulocytes# (Auto) 0.00-7.00 No rmal (applies to non-numeric results) [facility] ID Date Data Source [id number] 04/01/2019 04:14:00 PM EST [facility] Name Value Range Interpretation Code Description Data Jossy rce(s) Supporting Document(s) Sodium 140 mmol/L 136-145 Normal (applies to non-numeric resul ts) [facility] Potassium 3.5-5.1 Normal (applies to non-numeric resul ts) [facility] Chloride 104 mmol/L 98-107 Normal (applies to non-numeric resul ts) [facility] Carbon Dioxide CO2 21-32 Normal (applies to non-numer ic results) [facility] Anion Gap 5.0-16.0 Normal (applies to non-numeric resul ts) [facility] BUN 15 mg/dL 7-18 Normal (applies to non-numeric results) [facility] Creatinine,Serum 0.8-1.5 Normal (applies to non-numeric results) [facility] GFR >60 Normal (applies to non-numeric results) [facility] Glucose Level 111 mg/dL 60-99 Above high normal [facility] Reference range is only applicable when patient is fasting Note the following drug interference: Sulfasalazine Sulfapyridine Can see falsely depressed Can see falsely elevated result with up to 17% results with up to 11% decrease in measurement increase in measurement Recommend patients be collected for this test prior to administration of either drug. Calcium 8.5-10.1 Normal (applies to non-numeric resul ts) [facility] Bilirubin,Total 0.1-1.9 Normal (applies to non-numeric results) [facility] SGOT(AST) 19 U/L 15-37 Normal (applies to non-numeric resul ts) [facility] Note the following drug interference: Sulfasalazine Sulfapyridine Can see falsely depressed Can see falsely elevated result with up to 10% results with up to 10% decrease in measurement increase in measurement Recommend patients be collected for this test prior to administration of either drug. SGPT(ALT) 48 U/L 12-78 Normal (applies to non-numeric resul ts) [facility] Note the following drug interference: Sulfasalazine Sulfapyridine Can see falsely depressed Can see falsely elevated result with up to 29% results with up to 10% decrease in measurement increase in measurement Recommend patients be collected for this test prior to administration of either drug. Alkaline Phosphatase 113 U/L 38-126 Normal (applies to non-num martha results) [facility] can increase Alkaline Phosp le vels up to 2 times the normal adult value. Normal values for children and adolescents are 2 to 3 times the normal adult value. Total Protein 6.0-8.2 Normal (applies to non-numeric re sults) [facility] Albumin Level 3.4-5.0 Normal (applies to non-numeric re sults) [facility] ID Date Data Source [id number] 04/01/2019 04:10:00 PM [facility] Name Value Range Interpretation Code Description Data Jossy rce(s) Supporting Document(s) Hemoglobin A1c 4.4-6.2 Normal (applies to non-numeric r esults) [facility] Estimated Avg Glucose 123 mg/dL 126-240 Below low normal [facility] ID Date Data Source [id number] 04/01/2019 04:05:00 PM [facility] Name Value Range Interpretation Code Description Data Jossy rce(s) Supporting Document(s) Erythrocyte Sedimentation rate 12 mm/hr 0-15 N ormal (applies to non-numeric results) [facility] ID Date Data Source [id number] 04/01/2019 04:05:00 PM EST [facility] Name Value Range Interpretation Code Description Data Jossy rce(s) Supporting Document(s) White Blood Count 3.5-10.5 Above high normal [facility] Red Blood Count 4.30-5.70 Normal (applies to non-numeric results) [facility] Hemoglobin 13.5-17.5 Normal (applies to non-numeric resul ts) [facility] Hematocrit 38.8-50.0 Normal (applies to non-numeric resul ts) [facility] Mean Corpuscular Volume 81.2-95.1 Normal (applies to non- numeric results) [facility] Mean Corpuscular Hgb 25.6-32.2 Normal (applies to non-num martha results) [facility] Mean Corpuscular Hgb Conc 32.0-36.0 Normal (applies to no n-numeric results) [facility] Red Cell Distribution Width 11.8-15.6 Normal (appli es to non-numeric results) [facility] Platelet Count 271 x10 3/uL 150-450 Normal (applies to non-numeric results) [facility] Mean Platelet Volume 9.4-12.4 Normal (applies to non-num martha results) [facility] Neutrophils% (Auto) 31.0-71.0 Normal (applies to non-nume barbara results) [facility] Lymphocytes% (Auto) 20.0-55.0 Normal (applies to non-nume barbara results) [facility] Monocytes% (Auto) 4.0-12.0 Normal (applies to non-numeri c results) [facility] Eosinophils% (Auto) 1.0-8.0 Normal (applies to non-nume barbara results) [facility] Basophils% (Auto) 0.0-2.0 Normal (applies to non-numeri c results) [facility] Immature Granulocytes% (Auto) 0.0-2.0 Normal (trina lies to non-numeric results) [facility] Neutrophils# (Auto) 1.50-6.20 Above high normal [facility] Lymphocytes# (Auto) 1.20-4.00 Normal (applies to non-nume barbara results) [facility] Monocytes# (Auto) 0.00-0.90 Above high normal [facility] Eosinophils# (Auto) 0.00-0.50 Normal (applies to non-nume barbara results) [facility] Basophils# (Auto) 0.00-0.20 Normal (applies to non-numeri c results) [facility] Immature Granulocytes# (Auto) 0.00-7.00 No rmal (applies to non-numeric results) [facility] ID Date Data Source [id number] 04/02/2019 07:45:00 AM [facility] Imaging Services Department Imaging Report [address] [place], [place] [address] %(RAD)RES..mtdd.print.filter("line") Name: BETTE CARSON : 1980 Age/Sex: 39M Ordering Provider: LISA Hogan Med Rec #: [id number] Reg Status: [facility] Room #: Date of Service: 04/01/19 Report Number: [id number] cc:Kade Ortega NP Send Report To: [id number] CT/CT Head No Contrast Reason for exam: [...] [id number] Dictation Date/Time: 04/01/191649 Transcribed Date/Time: 04/02/19744 [facility] Supervisor: JEANE Name Value Range Interpretation Code Description Data Jossy rce(s) Supporting Document(s) Procedure Vital Signs ID Date Data Source [id number] 12/16/2019 10:41:00 AM EDT [facility] spital Name Value Range Interpretation Code Description Data Source(s) Weight Measurement Method 8 8 [facility] Weight (Calculated Kilograms) 123.47 123.47 [facility] Weight 4640 4640 [facility] pital Temperature Source 3 3 [facility] Temperature 97.3 97.3 [facility] spital Respiratory Effort 1 1 [facility] Respiratory Rate 18 18 [facility] Pulse Assessment Method 4 4 [facility] Height (Calculated Centimeters) 185.42 185. 42 [facility] Height 72 72 [facility] Blood Pressure 158/98 158/98 [facility] Body Mass Index (BMI) 35.9 35.9 [facility] Weight Measurement Method 8 8 [facility] Weight (Calculated Kilograms) 123.47 123.47 [facility] Weight 4640 4640 [facility] pital Temperature Source 3 3 [facility] Temperature 97.4 97.4 [facility] spital Respiratory Effort 1 1 [facility] Respiratory Rate 20 20 [facility] Pulse Assessment Method 4 4 [facility] Pulse Rate 105 105 [facility] pital Height (Calculated Centimeters) 185.42 185. 42 [facility] Height 72 72 [facility] Pressure 168/102 168/102 [facility] Body Mass Index (BMI) 35.9 35.9 [facility] Body Mass Index (BMI) 35.9 35.9 [facility] Weight (Calculated Kilograms) 123.47 123.47 [facility] Height (Calculated Centimeters) 185.42 185. 42 [facility] Weight (Calculated Kilograms) 123.47 123.47 [facility] Height (Calculated Centimeters) 185.42 185. 42 [facility] Body Mass Index (BMI) 35.9 35.9 [facility] Weight (Calculated Kilograms) 123.47 123.47 [facility] Height (Calculated Centimeters) 185.42 185. 42 [facility] Body Mass Index (BMI) 35.[address] ID Date Data Source [id number] 08/17/2019 01:37:00 AM EDT [facility] spital Name Value Range Interpretation Code Description Data Source(s) Weight Measurement Method 8 8 [facility] Weight (Calculated Kilograms) 123.47 123.47 [facility] Weight 4432 4432 [facility] pital Temperature Source 7 7 [facility] Temperature 98 98 [facility] spital Respiratory Effort 1 1 [facility] Respiratory Rate 18 18 [facility] Pulse Assessment Method 4 4 [facility] Pulse Rate 98 98 [facility] Height (Calculated Centimeters) 185.42 185. 42 [facility] Height 73 73 [facility] Blood Pressure 168/100 168/100 [facility] Body Mass Index (BMI) 35.[address] Weight Measurement Method 8 8 [facility] Weight (Calculated Kilograms) 123.47 123.47 [facility] Weight 4432 4432 [facility] pital Temperature Source 7 7 [facility] Temperature 98.7 98.7 [facility] spital Respiratory Effort 1 1 [facility] Respiratory Rate 20 20 [facility] Pulse Assessment Method 4 4 [facility] Pulse Rate 109 109 [facility] pital Height (Calculated Centimeters) 185.42 185. 42 [facility] Height 73 73 [facility] Blood Pressure 164/108 164/108 [facility] Body Mass Index (BMI) 35.9 35.9 [facility] Weight Measurement Method 8 8 [facility] Weight (Calculated Kilograms) 123.47 123.47 [facility] Weight 4432 4432 [facility] pital Temperature Source 7 7 [facility] Temperature 98.7 98.7 [facility] spital Respiratory Effort 1 1 [facility] Respiratory Rate 20 20 [facility] Pulse Assessment Method 4 4 [facility] Pulse Rate 109 109 [facility] pital Height (Calculated Centimeters) 185.42 185. 42 [facility] Height 73 73 [facility] Blood Pressure 164/108 164/108 [facility] Body Mass Index (BMI) 35.9 35.9 [facility] Weight (Calculated Kilograms) 123.47 123.47 [facility] Height (Calculated Centimeters) 185.42 185. 42 [facility] Body Mass Index (BMI) 35.9 359 [facility] ID Date Data Source [id number] 06/29/2019 09:00:00 AM EST [facility] Name Value Range Interpretation Code Description Data Source(s) Weight Measurement Method 8 8 [facility] Weight (Calculated Kilograms) 123.47 123.47 [facility] Weight 4640 4640 [facility] pital Temperature Source 7 7 [facility] Temperature 97.1 97.1 [facility] spital Respiratory Effort 1 1 [facility] Respiratory Rate 20 20 [facility] Pulse Assessment Method 4 4 [facility] Pulse Rate 110 110 [facility] pital Height (Calculated Centimeters) 185.42 185. 42 [facility] Height 72 72 [facility] Blood Pressure 138/95 138/95 [facility] Body Mass Index (BMI) 35.9 35.9 [facility] Weight Measurement Method 8 8 [facility] Weight (Calculated Kilograms) 123.47 123.47 [facility] Weight 4640 4640 [facility] pital Temperature Source 7 7 [facility] Temperature 97.1 97.1 [facility] spital Respiratory Effort 1 1 [facility] Respiratory Rate 20 20 [facility] Pulse Assessment Method 4 4 [facility] Pulse Rate 110 110 [facility] pital Height (Calculated Centimeters) 185.42 185. 42 [facility] Height 72 72 [facility] pital Blood Pressure 138/95 138/95 [facility] Body Mass Index (BMI) 35.[address] Weight (Calculated Kilograms) 123.47 123.47 [facility] Height (Calculated Centimeters) 185.42 185. 42 [facility] Body Mass Index (BMI) 35.[address] Weight (Calculated Kilograms) 123.47 123.47 [facility] Height (Calculated Centimeters) 185.42 185. 42 [facility] Body Mass Index (BMI) 35.[address] ID Date Data Source [id number] 05/19/2019 02:23:00 AM EST [facility] Name Value Range Interpretation Code Description Data Source(s) Weight Measurement Method 8 8 [facility] Weight (Calculated Kilograms) 123.47 123.47 [facility] Weight 4480 4480 [facility] pital Temperature Source 7 7 [facility] Temperature 98.1 98.1 [facility] spital Respiratory Effort 1 1 [facility] Respiratory Rate 19 19 [facility] Pulse Assessment Method 4 4 [facility] Pulse Rate 125 125 [facility] pital Height (Calculated Centimeters) 185.42 185. 42 [facility] Height 73 73 [facility] 127/91 127/91 [facility] Body Mass Index (BMI) 35.[address] Weight Measurement Method 8 8 [facility] Weight (Calculated Kilograms) 123.47 123.47 [facility] Weight 4480 4480 [facility] pital Temperature Source 7 7 [facility] Temperature 98.1 98.1 [facility] spital Respiratory Effort 1 1 [facility] Respiratory Rate 16 16 [facility] Pulse Assessment Method 4 4 [facility] Pulse Rate 125 125 [facility] pital Height (Calculated Centimeters) 185.42 185. 42 [facility] Height 73 73 [facility] 127/91 127/91 [facility] Body Mass Index (BMI) 35.9 35.9 [facility] Weight Measurement Method 8 8 [facility] Weight (Calculated Kilograms) 123.47 123.47 [facility] Weight 4480 4480 [facility] pital Temperature Source 7 7 [facility] Temperature 98.1 98.1 [facility] spital Respiratory Effort 1 1 [facility] Respiratory Rate 16 16 [facility] Pulse Assessment Method 4 4 [facility] Pulse Rate 125 125 [facility] pital Height (Calculated Centimeters) 185.42 185. 42 [facility] Height 73 73 [facility] Pressure 127/91 127/91 [facility] Body Mass Index (BMI) 35.9 35.9 [facility] Weight (Calculated Kilograms) 123.47 123.47 [facility] Height (Calculated Centimeters) 185.42 185. 42 [facility] Body Mass Index (BMI) 35.[address] ID Date Data Source [id number] 05/05/2019 06:30:00 AM EST [facility] Name Value Range Interpretation Code Description Data Source(s) Weight Measurement Method 8 8 [facility] Weight (Calculated Kilograms) 123.47 123.47 [facility] Weight 4640 4640 [facility] pital Temperature Source 7 7 [facility] Temperature 97.9 97.9 [facility] spital Respiratory Effort 1 1 [facility] Respiratory Rate 18 18 [facility] Pulse Assessment Method 4 4 [facility] Pulse Rate 116 116 [facility] pital Height (Calculated Centimeters) 185.42 185. 42 [facility] 157/99 157/99 [facility] Body Mass Index (BMI) 35.9 35.9 [facility] Weight Measurement Method 8 8 [facility] Weight (Calculated Kilograms) 123.47 123.47 [facility] Weight 4640 4640 [facility] pital Temperature Source 7 7 [facility] Temperature 97.9 97.9 [facility] spital Respiratory Effort 1 1 [facility] Respiratory Rate 18 18 [facility] Pulse Assessment Method 4 4 [facility] Pulse Rate 116 116 [facility] Height (Calculated Centimeters) 185.42 185. 42 [facility] Height 73 73 [facility] 175/136 175/136 [facility] Body Mass Index (BMI) 35.9 35.9 [facility] Weight (Calculated Kilograms) 123.47 123.47 [facility] Height (Calculated Centimeters) 185.42 185. 42 [facility] Body Mass Index (BMI) 35.9 35.9 [facility] ID Date Data Source [id number] 04/02/2019 08:26:00 AM EST [facility] Name Value Range Interpretation Code Description Data Source(s) Weight Measurement Method 8 8 [facility] Weight (Calculated Kilograms) 123.47 123.47 [facility] Weight 4480 4480 [facility] pital Temperature Source 7 7 [facility] Temperature 96.7 96.7 [facility] spital Respiratory Effort 1 1 [facility] Respiratory Rate 18 18 [facility] Pulse Assessment Method 4 4 [facility] Pulse Rate 107 107 [facility] Height (Calculated Centimeters) 185.42 185. 42 [facility] Height 72 72 [facility] pital Blood Pressure 148/84 148/84 [facility] Body Mass Index (BMI) 35.9 35.9 [facility] Weight Measurement Method 8 8 [facility] Weight (Calculated Kilograms) 123.47 123.47 [facility] Weight 4480 4480 [facility] pital Temperature Source 7 7 [facility] Temperature 96.7 96.7 [facility] spital Respiratory Effort 1 1 [facility] Respiratory Rate 18 18 [facility] Pulse Assessment Method 4 4 [facility] Pulse Rate 96 96 [facility] pital Height (Calculated Centimeters) 185.42 185. 42 [facility] Height 72 72 [facility] Blood Pressure 167/108 167/108 [facility] Body Mass Index (BMI) 35.9 359 [facility] Weight (Calculated Kilograms) 123.47 123.47 [facility] Height (Calculated Centimeters) 185.42 185. 42 [facility] Body Mass Index (BMI) 35.[address] ID Date Data Source [id number] 06/12/2019 03:53:34 PM [facility] Name Value Range Interpretation Code Description Data Source(s) WEIGHT RECORDED 257.94 lb 257.94 lb [facility] Body height Measured 72.01 in 72.01 in [facility]
[2020-05-19 03:54] VITALS: BP 180/97
[2020-05-19 04:00] VITALS: BP 181/76
--- NOTE | 2020-05-19 05:39 | ECGEPIP ---
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
== END 2020-05-19 04:00 | disposition home or self-care (01) ==
LOC: M ED 00:10
DX: I10 Essential (primary) hypertension (principal); F17.200 Nicotine dependence, unspecified, uncomplicated; Z79.899 Other long term (current) drug therapy; Z91.030 Bee allergy status; Z88.1 Allergy status to other antibiotic agents; Z91.018 Allergy to other foods
CPT/HCPCS: 36415; 80048; 82550; 82553; 84484; 85025; 93005; 96374; 99284; J1885

== ENCOUNTER 2020-11-19 20:00 | Emergency (ER) | payer SELFPAY ==
[~2020-11-19] VITALS: Ht 185.4 cm; Wt 124.1 kg
[~2020-11-19 20:00] MED LIST changes: +NORV5TAB PO
[2020-11-19] MEDS ORDERED: ALLO100T PO (20:09)
[2020-11-19] MEDS ORDERED: ASPI-161 PO (20:09)
[2020-11-19] MEDS ORDERED: HYDR-3490 PO (20:09)
[2020-11-19] MEDS ORDERED: LIDOCAINE VISCOUS 2% SOLN 15ML UDC SS ONE (23:00)
[2020-11-20 00:07] LABS: BASO % 0.2 % (0.0-1.0); EOS # 0.4 10^3/uL (0.0-0.5); EOS % 2.6 % (0.0-3.0); HEMATOCRIT 42.5 % (42.0-52.0); HEMOGLOBIN 14.2 g/dl (13.5-17.5); LYMPH # 2.6 10^3/uL (1.5-5.0); LYMPH % 16.2 % (24.0-44.0); MEAN CORPUSCULAR HEMOGLOBIN 29.2 pg (27.0-33.0); MEAN CORPUSCULAR HGB CONC 33.4 g/dl (32.0-36.5); MEAN CORPUSCULAR VOLUME 87.3 fl (80.0-96.0); MONO # 1.4 10^3/uL (0.0-0.8); NEUTROPHILS # 11.3 10^3/uL (1.5-8.5); NEUTROPHILS % 71.1 % (36.0-66.0); PLATELET COUNT, AUTOMATED 238 10^3/uL (150-450); RED BLOOD COUNT 4.87 10^6/uL (4.30-6.10); WHITE BLOOD COUNT 15.9 10^3/uL (4.0-10.0)
[2020-11-20 00:11] LABS: MONO SCRN NEGATIVE (NEGATIVE)
[2020-11-20] MEDS ORDERED: LIDOCAINE 1% SDV 5ML VIAL DILUENT ONE (00:25)
[2020-11-20] MEDS ORDERED: cefTRIAXone 500MG VIAL (J0696 PER 250MG) IM ONE (00:25)
[2020-11-20] MEDS ORDERED: LIDO2SOL17 PO (00:38)
[2020-11-20] MEDS ORDERED: AUGM875T28 PO (00:38)
[2020-11-20 01:02] VITALS: BP 165/62
== END 2020-11-20 01:03 | disposition home or self-care (01) ==
LOC: M ED 20:00
DX: J03.90 Acute tonsillitis, unspecified (principal); I10 Essential (primary) hypertension; R51.9 Headache, unspecified; G47.33 Obstructive sleep apnea (adult) (pediatric); K21.9 Gastro-esophageal reflux disease without esophagitis; F32.9 Major depressive disorder, single episode, unspecified; F17.200 Nicotine dependence, unspecified, uncomplicated; Z88.1 Allergy status to other antibiotic agents; Z88.5 Allergy status to narcotic agent; Z91.030 Bee allergy status; Z91.018 Allergy to other foods
CPT/HCPCS: 85025; 86308; 87798; 87880; 96372; 99283; J0696

== ENCOUNTER 2021-12-02 04:01 | Emergency (ER) | payer SELFPAY ==
[~2021-12-02] VITALS: Ht 182.9 cm; Wt 124.3 kg
[~2021-12-02 04:01] MED LIST changes: +ALLO100T PO; +ASPI-161 PO; +AUGM875T28 PO; +HYDR-3490 PO; +LIDO2SOL17 PO; +LOSA100T45 PO; -LOSA100T50 PO
[2021-12-02 04:03] VITALS: BP 166/109
[2021-12-02] MEDS ORDERED: METF-839 PO (04:15)
[2021-12-02] MEDS ORDERED: OMEP40CA4 PO (04:15)
[2021-12-02] MEDS ORDERED: METO1TAB87 PO (04:15)
[2021-12-02] MEDS ORDERED: ACET-861 PO (04:17)
== END 2021-12-02 04:41 | disposition left against medical advice (07) ==
LOC: M ED 04:01
DX: Z53.21 Procedure and treatment not carried out due to patient leaving prior to being seen by health care provider (principal)

== ENCOUNTER 2023-02-27 12:27 | Emergency (ER) | payer OTHER, SELFPAY ==
[~2023-02-27] VITALS: Ht 182.9 cm; Wt 122.7 kg
[~2023-02-27 12:27] MED LIST changes: +ACET-861 PO; +LIDO15SO PO; -LIDO2SOL17 PO; -LOSA100T45 PO; +LOSA100T46 PO; +METF-839 PO; +METO1TAB87 PO; +OMEP40CA4 PO
[2023-02-27] MEDS ORDERED: POTA-298 (13:29)
[2023-02-27] MEDS ORDERED: AMLO1TAB25 (13:29)
[2023-02-27] MEDS ORDERED: DOXY-444 PO (13:29)
[2023-02-27] MEDS ORDERED: HYDR50TAB (13:29)
[2023-02-27] MEDS ORDERED: METF500T13 (13:29)
[2023-02-27] MEDS ORDERED: OMEP40CA5 (13:30)
[2023-02-27] MEDS ORDERED: KETOROLAC 30 MG/ML 1ML VIAL IV ONE (16:25)
[2023-02-27 17:15] LABS: BASO % 0.3 % (0.0-1.0); EOS # 0.2 10^3/uL (0.0-0.5); EOS % 1.6 % (0.0-3.0); HEMATOCRIT 44.6 % (42.0-52.0); LYMPH # 2.3 10^3/uL (1.5-5.0); LYMPH % 17.8 % (24.0-44.0); MEAN CORPUSCULAR HEMOGLOBIN 28.7 pg (27.0-33.0); MEAN CORPUSCULAR HGB CONC 33.6 g/dl (32.0-36.5); MEAN CORPUSCULAR VOLUME 85.4 fl (80.0-96.0); MONO # 1.3 10^3/uL (0.0-0.8); MONO % 9.5 % (2.0-8.0); NEUTROPHILS # 9.3 10^3/uL (1.5-8.5); NEUTROPHILS % 70.3 % (36.0-66.0); PLATELET COUNT, AUTOMATED 256 10^3/uL (150-450); RED BLOOD COUNT 5.22 10^6/uL (4.30-6.10); WHITE BLOOD COUNT 13.2 10^3/uL (4.0-10.0)
[2023-02-27 17:31] LABS: ERYTHROCYTE SEDIMENTATION RATE 32 mm/hr (0-15)
[2023-02-27 17:32] LABS: URIC ACID 6.5 MG/DL (3.7-9.2)
[2023-02-27 17:35] LABS: BLOOD UREA NITROGEN 12 MG/DL (9-23); CARBON DIOXIDE LEVEL 29 MMOL/L (20-31); CHLORIDE LEVEL 104 MMOL/L (98-107); CREATININE FOR GFR 0.88 MG/DL (0.70-1.30); GLOMERULAR FILTRATION RATE > 60.0 (>60); GLUCOSE, FASTING 117 MG/DL (60-100); POTASSIUM SERUM 4.2 MMOL/L (3.5-5.1); SODIUM LEVEL 141 MMOL/L (136-145)
[2023-02-27] MEDS ORDERED: MORPHINE 4 MG/ML 1ML VIAL IV ONE (18:35)
[2023-02-27] MEDS ORDERED: ONDANSETRON 4MG 2ML VIAL IV ONE (18:35)
[2023-02-27 19:42] LABS: CRYSTALS, BODY FLUID NONE SEEN (NONE SEEN); SOURCE, BODY FLUID CRYSTALS RT KNEE
[2023-02-27 19:44] LABS: SOURCE, BODY FLUID RT KNEE; SYNOVIAL FLUID COLOR YELLOW (COLORLESS)
[2023-02-27 19:55] LABS: SOURCE, BODY FLUID GLUCOSE RT KNEE
[2023-02-27 20:06] LABS: SOURCE, BODY FLUID URIC ACID RT KNEE; URIC ACID, BODY FLUID 6.6 MG/DL (NOT ESTABLISHED)
[2023-02-27] MEDS ORDERED: COLC0.6T47 PO (20:12)
[2023-02-27] MEDS ORDERED: COLCHICINE 0.6 MG TABLET PO ONE (20:20)
[2023-02-27 20:27] VITALS: BP 180/90; TEMP 98; O2SAT 100
[2023-02-28] MEDS ORDERED: PERC5TAB12 PO (07:49)
== END 2023-02-27 20:42 | disposition home or self-care (01) ==
LOC: M ED 12:27
DX: M25.461 Effusion, right knee (principal); A69.20 Lyme disease, unspecified; A69.23 Arthritis due to Lyme disease; E11.9 Type 2 diabetes mellitus without complications; I10 Essential (primary) hypertension; G47.33 Obstructive sleep apnea (adult) (pediatric); M10.9 Gout, unspecified; C67.9 Malignant neoplasm of bladder, unspecified; Z91.030 Bee allergy status; Z91.018 Allergy to other foods; Z88.8 Allergy status to other drugs, medicaments and biological substances; Z79.02 Long term (current) use of antithrombotics/antiplatelets; Z79.4 Long term (current) use of insulin; Z79.899 Other long term (current) drug therapy
CPT/HCPCS: 73564; 80048; 82945; 83605; 83880; 84550; 84560; 85025; 85652; 86140; 86618; 87040; 87070; 87205; 89051; 89060; 93971; 96374; 96375; 99284; J1885; J2405

== ENCOUNTER 2023-02-28 02:41 | Emergency (ER) | payer OTHER ==
[~2023-02-28] VITALS: Ht 182.9 cm; Wt 122.7 kg
[~2023-02-28 02:41] MED LIST changes: +COLC0.6T47 PO; +DOXY-444 PO; +HYDR50TAB; +METF500T13; +OMEP40CA5; +POTA-298
[2023-02-28] MEDS ORDERED: PERCOCET 5MG/325MG TAB PO ONE (07:10)
[2023-02-28] MEDS ORDERED: COLCHICINE 0.6 MG TABLET PO ONE (07:15)
[2023-02-28] MEDS ORDERED: PERC5TAB12 PO (07:49)
[2023-02-28 08:04] VITALS: BP 144/78; TEMP 97.8; O2SAT 96
== END 2023-02-28 08:09 | disposition home or self-care (01) ==
LOC: M ED 02:41 → EDBD 02:41 → M ED 08:09
DX: M25.461 Effusion, right knee (principal); I10 Essential (primary) hypertension; F32.A Depression, unspecified; R51.9 Headache, unspecified; F17.200 Nicotine dependence, unspecified, uncomplicated; Z91.030 Bee allergy status; Z91.018 Allergy to other foods; Z88.1 Allergy status to other antibiotic agents; Z88.6 Allergy status to analgesic agent; Z79.4 Long term (current) use of insulin; Z79.83 Long term (current) use of bisphosphonates; Z79.899 Other long term (current) drug therapy

== ENCOUNTER 2024-09-23 00:13 | Emergency (ER) | payer BC, OTHER, SELFPAY ==
[~2024-09-23] VITALS: Ht 185.4 cm; Wt 113.1 kg
[~2024-09-23 00:13] MED LIST changes: -ASPI-161 PO; +ASPI-615 PO; +DOXY-440 PO; -DOXY-444 PO; -FLOM0.4C39; -LIDO15SO PO; +LIDO15SO8 PO; +PERC5TAB12 PO; +TAMS-18
[2024-09-23 00:24] VITALS: TEMP 96.8
[2024-09-23] MEDS: KETOROLAC 30 MG/ML 1 ML VIAL IV ONE (01:10)
[2024-09-23] MEDS: ONDANSETRON 4MG 2ML VIAL IV ONE (01:10)
[2024-09-23] MEDS: NS (Normal Saline) 0.9% 1,000 ML IV ONE (01:10)
[2024-09-23 01:37] LABS: BASO # 0.1 10^3/uL (0.0-0.2); BASO % 0.4 % (0.0-1.0); EOS # 0.3 10^3/uL (0.0-0.5); EOS % 2.5 % (0.0-3.0); HEMATOCRIT 43.4 % (42.0-52.0); HEMOGLOBIN 15.1 g/dl (13.5-17.5); LYMPH # 3.6 10^3/uL (1.5-5.0); LYMPH % 26.6 % (24.0-44.0); MEAN CORPUSCULAR HEMOGLOBIN 29.6 pg (27.0-33.0); MEAN CORPUSCULAR HGB CONC 34.8 g/dl (32.0-36.5); MEAN CORPUSCULAR VOLUME 85.1 fl (80.0-96.0); MONO % 7.5 % (2.0-8.0); NEUTROPHILS # 8.5 10^3/uL (1.5-8.5); NEUTROPHILS % 62.7 % (36.0-66.0); PLATELET COUNT, AUTOMATED 272 10^3/uL (150-450); WHITE BLOOD COUNT 13.6 10^3/uL (4.0-10.0)
[2024-09-23] MEDS: MORPHINE 4 MG/ML 1 ML VIAL IV PRN ×2 (01:53→05:19)
[2024-09-23 02:08] LABS: LIPASE 134 U/L (12-53)
[2024-09-23 02:10] LABS: AMYLASE 112 U/L (30-118)
[2024-09-23] MEDS ORDERED: ISOVUE-370 76% 100 ML VIAL As Ordered ONE (02:10)
[2024-09-23 02:22] LABS: ALBUMIN 3.7 G/DL (3.2-5.2); ALKALINE PHOSPHATASE 108 U/L (40-129); AST/SGOT 17 U/L (<34); BILIRUBIN,DIRECT 0.1 MG/DL (<0.4); BILIRUBIN,TOTAL 0.4 MG/DL (0.3-1.2); BLOOD UREA NITROGEN 15 MG/DL (9-23); CALCIUM LEVEL 9.4 MG/DL (8.5-10.1); CARBON DIOXIDE LEVEL 27 MMOL/L (20-31); CHLORIDE LEVEL 106 MMOL/L (98-107); GLOMERULAR FILTRATION RATE > 90.0 (>60); GLUCOSE, FASTING 122 MG/DL (60-100); POTASSIUM SERUM 3.8 MMOL/L (3.5-5.1); SODIUM LEVEL 140 MMOL/L (136-145); TOTAL PROTEIN 7.1 G/DL (5.7-8.2)
[2024-09-23 02:58] LABS: ALT/SGPT 26 U/L (7.0-40)
[2024-09-23 03:08] LABS: KETONE, URINE AUTO RFX NEGATIVE (NEGATIVE); LEUKOCYTE ESTERASE UR AUTO RFX NEGATIVE (NEGATIVE); MUCUS, URINE RFX SMALL (NEGATIVE); NITRITE, URINE AUTO RFX NEGATIVE (NEGATIVE); RBC, URINE AUTO RFX 1 /HPF (0-3); SQUAM EPITHELIAL CELL UR AURFX 0 /HPF (0-6); WBC, URINE AUTO RFX 1 /HPF (0-3)
[2024-09-23] MEDS: NS (Normal Saline) 0.9% 1,000 ML IV SCH (04:55)
[2024-09-23] MEDS ORDERED: ONDA-282 PO (05:26)
[2024-09-23] MEDS ORDERED: PERC5TAB12 PO (05:26)
[2024-09-23 05:48] LABS: CHOLESTEROL LEVEL 164 MG/DL (<200); HDL CHOLESTEROL 35.6 MG/DL (>40); LDL CHOLESTEROL 91.4 MG/DL (<100); NON-HDL-C 128.4 MG/DL; TRIGLYCERIDES LEVEL 185 MG/DL (<150)
[2024-09-23 06:01] VITALS: BP 175/83; O2SAT 94
== END 2024-09-23 06:14 | disposition home or self-care (01) ==
LOC: M ED 00:13
DX: K85.90 Acute pancreatitis without necrosis or infection, unspecified (principal); R91.1 Solitary pulmonary nodule; E11.9 Type 2 diabetes mellitus without complications; I10 Essential (primary) hypertension; K21.9 Gastro-esophageal reflux disease without esophagitis; Q60.0 Renal agenesis, unilateral; F17.200 Nicotine dependence, unspecified, uncomplicated; Z79.899 Other long term (current) drug therapy; Z88.1 Allergy status to other antibiotic agents; Z91.030 Bee allergy status; Z91.018 Allergy to other foods
CPT/HCPCS: 74177; 80047; 80048; 80061; 80076; 81001; 82150; 83605; 83690; 85025; 87040; 93041; 96361; 96374; 96375; 96376; 99285; J1885; J2405; Q9967